=== PATIENT | female | born 1960 | race Caucasian/White ===

== ENCOUNTER 2025-01-12 12:46 | Emergency (ER) | payer MEDICARE, OTHER, SELFPAY ==
--- OUTSIDE RECORDS SUMMARY | 2023-10-10 10:15 | XMS_ITS ---
Author Organization 1 [facility] and [facility], [facility] Address [address] [facility] [address] [place] [address] Care Team Providers Care Home Staging Specialist Name Role Phone Caleb MORRIS III, Dr Cruz Unavailable Cecy Venegas [phone] Encounters Encounter Location Date Provider Diagnosis 1 [facility] [address] [address] 10/10/2023 Cecy Nelson Plan Of Treatment No Information Progress Notes * Kody MEHTA SDOB:[birth year] (64 yo F)Acc No.[id number]:10/10/2023 Progress Notes Patient: Kody MARKS Appointment Provider: LIZZETH Chiu :1960 A ge:63 Y S ex:Female Date:10/10/2023 Address:[address] [place] [address] Subjective: * Chief Complaints: * * Medical History: Objective: * Vitals: Assessment: Plan: * Treatment: * * Electronic signature of Felipa Nelson on 01/12/2025 at 02:13 PM EDT Sign off status: Pending * Appointment Provider: LIZZETH Chiu Date: 10/10/2023 Generated for Printing/Faxing/eTransmitting on: 01/12/2025 02:13 PM EDT
--- OUTSIDE RECORDS SUMMARY | 2023-10-11 05:00 | XMS_ITS ---
Author Organization 1 [facility], [facility] Address [address] [facility] [address] [place] [address] Care Team Providers Care Banquet Waiter/Waitress Name Role Phone Caleb MORRIS III, Dr Cruz Unavailable Unavail able Ya Pires Unavailable [phone] Encounters Encounter Location Date Provider Diagnosis [facility] [place] [address] [facility] [address] [place] [address] 10/11/2023 Ya Pires Plan Of Treatment No Information Progress Notes * Kody MEHTA SDOB:[birth year] (64 yo F)Acc No.[id number]:10/11/2023 Progress Notes Patient: Kody MARKS Appointment Provider: Tasia Pires MD :1960 A ge:63 Y S ex:Female Date:10/11/2023 Address:[address] [place] [address] Subjective: * Chief Complaints: * * Medical History: Objective: * Vitals: Assessment: Plan: * Treatment: * * Electronic signature of Suzi Pires on 01/12/2025 at 02:14 PM EDT Sign off status: Pending * Appointment Provider: Tasia Pires MD Date: 10/11/2023 Generated for Printing/Faxing/eTransmitting on: 01/12/2025 02:14 PM EDT
--- OUTSIDE RECORDS SUMMARY | 2023-10-17 05:45 | XMS_ITS ---
Author Organization 1 [facility], [facility] Address [address] [facility] [address] [place] [address] Care Team Providers Care Ferry Pilot Name Role Phone Caleb MORRIS III, Dr Cruz Unavailable Unavail Cecy Alcantara Unavailable [phone] Allergies Allergen (clinical drug ingredient) Drug/Non Drug Allergy documented on EMR Reaction Allergy Type Onset Date Status Seasonal (uncoded) Unknown Allergy A ctive REASON FOR VISIT low back pain, groin pain, hip pain Medications Medication SIG (Take, Route, Frequency, Duration) Notes Start Date End Date Status Butrans 10 MCG/HR 1 patch to skin Transdermal 7 DAYS; Duration: [address] Ya Pires SUMIT:[id number] Supervising Physician 09/13/2023 Unknown HYDROcodone-Acetamino phen 5-325 MG 1 tablet as needed Orally every 12 hrs; Duration: 30 days SUMIT : [id number] , DO NOT FILL UNTIL 08/31/2023 Unknown traMADol HCl ER 200 MG 1 tablet Orally Once at bedtime; Duration: [address] Ya Pires SUMIT:[id number] Supervising Physician DO NOT FILL UNTIL 09/30/2023 Unknown Lyrica 75 MG 1 capsule Orally Three times a day; Duration: [address] Ya Pires SUMIT:[id number] Supervising Physician DO NOT FILL UNTIL 09/14/2023 Unknown DULoxetine HCl 60 MG 1 capsule Orally Once a day; Duration: 30 day(s) Dr Ya Pires SUMIT:[id number] Supervising Physician Unknown Protonix Unknown Synthroid Unknown Valium 5 MG 1 tablet as needed Orally 1 hour prior to procedure; Duration: 1 day OKAY TO FILL TODAY 10/11/2022 Unknown Medrol 4 MG as directed Orally per _insert; Duration: 6 days 11/20/2022 Unknown Narcan 4 MG/0.1ML use as directed Nasally per package _insert; Duration: 1 dose 06/04/2023 Unknown Meclizine HCl Unknow n DULoxetine HCl Unkno wn Amitriptyline HCl Un known Lipitor Unknown Naltrexone Unknown Linzess Unknown Social History Tobacco Use: Social History Observation Description Date Details (start date - stop date) Never Smoker NA - NA Tobacco Use/Smoking Question Answer Notes Are you a nonsmoker Alcohol Screen Question Answer Notes Did you have a drink containing alcohol in the p ast year? No Points 0 Interpretation Negative Encounters Encounter Location Date Provider Diagnosis 7 [facility] [address] [facility] [address] [place] [address] 10/17/2023 Cecy Nelson Assessments Encounter Date Diagnosis (ICD Code) Assessment Notes Treatment Notes Treatment Clinical Notes Section Notes 10/17/2023 Other The patie nt will start or continue the prescribed opioid medication regimen as outlined below. They have failed non-opioid therapy including acetaminophen, NSAIDs, muscle relaxants, and neuropathic agents. Ongoing prescribing with opioid pain medications is therapeutic because the patient is receiving at least 30% benefit in daily functioning quality of life and/or the ability to perform meaningful work. Risk regarding pain medications and opiates with regards to non-compliance and interactions with other medications/subst ances including benzodiazepines/a lcohol/illicit substances were discussed, the dangers of such action include but are not limited to respiratory suppression and ; and the patient fully understands without additional concerns or questions. The patient has been instructed to call EMS and/or report to the nearest emergency department if a life-threatening emergency presents itself. A prescription was sent to the pharmacy for intramuscular injectable naloxone. We have also provided the patient with information regarding the use of OTC naloxone nasal spray. The patient (and family member) was counseled on the use of nalaxone as a life-saving measure for opioid overdose. The patient has also been instructed on proper disposal of unused pain medications including returning them to a participating pharmacy or case filler / fire department. Medication refills will be provided as needed with appropriate fill dates marked on prescriptions as detailed below. I performed a [place] Prescription Drug Monitoring Program database query on this patient and found it to be consistent with medication history with no apparent evidence of opioid-related aberrant behaviors. Plan Of Treatment No Information Progress Notes * Kody MEHTA SDOB:[birth year] (64 yo F)Acc No.[id number]:10/17/2023 Progress Notes Patient: Kody MARKS Appointment Provider: LIZZETH Chiu :1960 A ge:63 Y S ex:Female Date:10/17/2023 Address:[address] [place] [address] Subjective: * Chief Complaints: * 1 . Low back pain. 2. Groin pain. 3. Hip pain. * HPI: P ain Management: The severity of the pain is c hange after asking patient..? N ew symptom(s): Patient presents today for follow-up visit for management of their pain. Patient describes the pain as throbbing, aching, burning, stabbing, dull, sharp, pins and needles. The patient's pain is mostly in the Pain is improved with Pain is worse with Patient states that the medication is not / helping manage their pain at this time. Patient denies any side effects from the medication. Clinical encounter chaperoned by: PAIN SCORE ON NUMBERIC SCALE IS DOCUMENTED ABOVE. O PIOID RISK TOOL: Risk Assessment & Stratification P atient is on Opioids?Yes, 1 . Substance Abuse - Family History N o, 2 . Substance Abuse - Personal History N o, 3 . Age Between 16-45 N o, 4 . History of Preadolescent Sexual Abuse N o, 5 . Psychological Disease N o, 6 . Risk Factors for Adverse Events Y es, 6 a. 50 MME or Greater N o, 6 b. Benzos / BATTERY ENGINEER Depressants N o, 6 c. Use of Schedule II Opiates Y es, 7 . History of Opioid Related Aberrant Behavior / Adverse Events within 12 Months N o, 8 . History of Inconsistent Urine Drug Test Results within last 90 Days N o,?Risk Group G reen (0-1), R isk Score 1 , P geneva Group L evel A (0-1), P geneva Score 1 , O RT Date Completed 0 10/17/2023. D epression Screening: PHQ-2 (2015 Edition) L ittle interest or pleasure in doing things? N ot at all, F eeling down, depressed, or hopeless? N ot at all, T otal Score 0 . * ROS: N eurologic: Pain P t. reports pain. 6 point ROS: General/Constitutional d enies fever, chills, night sweats, unexplained weight loss,. R espiratory: Patient denies d ifficulty breathing, respiratory depression, reports of excessive snoring, reports of apnea while asleep. G astrointestinal: Patient denies n ausea, vomiting, diarrhea, constipation.? P sychiatric: Patient denies d epression, anxiety, alcohol addiction, illegal drug abuse, prescription drug abuse, recent substance abuse treatment, craving medications, difficulty controlling medication use, family or work problems related to medication use, suicidal thoughts, homicidal thoughts. * Medical History: A rthritis, Acid refux/ulcers, Kidney disease, Headaches/migraines, Depression, Anxiety. * Surgical History: 2 C- sections , 2 Knee replacements , Tubal , Thumb , 2 Sinus . * Hospitalization/Major Diagno stic Procedure: s ee surgical hx . * Family History: F ather: diagnosed with Heart Disease. M other: diagnosed with Heart Disease. Mother- congestive heart failure and 2 hips relocates Father- leaky heart. * Social History: T obacco Use: T obacco Use/Smoking A re you a n onsmoker. S moking A re you a: n ever smoker. D rugs/Alcohol: A lcohol Screen D id you have a drink containing alcohol in the past year? N o, P oints 0 , I nterpretation N egative. * Medications: U nknown Linzess , Unknown DULoxetine HCl , Unknown Amitriptyline HCl , Unknown Lipitor , Unknown Naltrexone , Unknown Meclizine HCl , Unknown Protonix , Unknown Synthroid , Unknown Valium 5 MG Tablet 1 tablet as needed Orally 1 hour prior to procedure , Notes to Pharmacist: OKAY TO FILL TODAY, Unknown Medrol 4 MG Tablet Therapy Pack as directed Orally per _insert , Unknown Narcan 4 MG/0.1ML Liquid use as directed Nasally per package _insert , Unknown HYDROcodone-Acetaminophen 5-325 MG Tablet 1 tablet as needed Orally every 12 hrs , Notes to Pharmacist: SUMIT : [id number] , DO NOT FILL UNTIL 08/31/2023, Unknown traMADol HCl ER 200 MG Tablet Extended Release 24 Hour 1 tablet Orally Once at bedtime , Notes to Pharmacist: Dr Ya Pires SUMIT:[id number] Supervising Physician DO NOT FILL UNTIL 09/30/2023, Unknown Lyrica 75 MG Capsule 1 capsule Orally Three times a day , Notes to Pharmacist: Dr Ya Pires SUMIT:[id number] Supervising Physician DO NOT FILL UNTIL 09/14/2023, Unknown DULoxetine HCl 60 MG Capsule Delayed Release Particles 1 capsule Orally Once a day , Notes to Pharmacist: Dr Ya Pires SUMIT:[id number] Supervising Physician, Unknown Butrans 10 MCG/HR Patch Weekly 1 patch to skin Transdermal 7 DAYS , Notes to Pharmacist: Dr Ya Pires SUMIT:[id number] Supervising Physician, Medication List reviewed and reconciled with the patient * Allergies: S easonal. Objective: * Vitals: * Examination: P HYSICAL EXAM: GENERAL APPEARANCE: N AD, appears stated age. HEENT n ormocephalic, anicteric sclera, mucous membranes grossly intact, EOMI. CV e xtremities appear to be grossly perfused, no obvious chest deformity. RESPIRATORY n o dyspnea noted. ABDOMEN: n ondistended, no obvious ascites noted, no guarding noted. EXTREMITIES: n o edema noted on gross inspection, acyanotic. SKIN: n o gross lesions noted. PSYCH A AO x 3, nonpressured speech, no suicidal ideations, responds to commands, converses appropriately. MUSCULOSKELETAL s trength grossly intact in bilateral UE/LE.. NEUROLOGICAL s ensation and DTRs grossly intact in bilateral UE and LE. CERVICAL P OSITIVE facet loading noted ,decreased range of motion , tenderness to palpation along mid cervical facet joints . THORACIC N TTP, range of motion appears to be within normal limits. LUMBOSACRAL P OSITIVE facet loading noted , decreased range of motion , tenderness to palpation bilaterally along lowest three segments of lumbar facet joints , negative straight leg raise . Assessment: * Assessment: The patient will start or co ntinue the prescribed opioid medication regimen as outlined below. They have failed non-opioid therapy including acetaminophen, NSAIDs, muscle relaxants, and neuropathic agents. Ongoing prescribing with opioid pain medications is therapeutic because the patient is receiving at least 30% benefit in daily functioning quality of life and/or the ability to perform meaningful work. Risk regarding pain medications and opiates with regards to non-compliance and interactions with other medications/substances including benzodiazepines/alcohol/illicit substances were discussed, the dangers of such action include but are not limited to respiratory suppression and ; and the patient fully understands without additional concerns or questions. The patient has been instructed to call EMS and/or report to the nearest emergency department if a life-threatening emergency presents itself. A prescription was sent to the pharmacy for intramuscular injectable naloxone. We have also provided the patient with information regarding the use of OTC naloxone nasal spray. The patient (and family member) was counseled on the use of nalaxone as a life-saving measure for opioid overdose. The patient has also been instructed on proper disposal of unused pain medications including returning them to a participating pharmacy or case filler / fire department. Medication refills will be provided as needed with appropriate fill dates marked on prescriptions as detailed below. I performed a [place] Prescription Drug Monitoring Program database query on this patient and found it to be consistent with medication history with no apparent evidence of opioid-related aberrant behaviors. Plan: * Treatment: * Preventive Medicine: Counseling: p ain Management F ollow-up Plan documented: Jackson manzano. * * Electronic signature of Felipa Nelson on 01/12/2025 at 02:15 PM EDT Sign off status: Pending * Appointment Provider: LIZZETH Chiu Date: 0 10/17/2023 Generated for Printing/Faxing/eTransmitting on: 01/12/2025 02:15 PM EDT History and Physical Notes * HPI (History of Present Illness) Category Sub-Category Detail Notes Category Not es Interim History Pain Management The severity of the pain is change after asking patient. New symptom(s) Patient presents today for follow-up visit for management of their pain. Patient describes the pain as throbbing, aching, burning, stabbing, dull, sharp, pins and needles. The patient's pain is mostly in the Pain is improved with Pain is worse with Patient states that the medication is not / helping manage their pain at this time. Patient denies any side effects from the medication. Clinical encounter chaperoned by: PAIN SCORE ON NUMBERIC SCALE IS DOCUMENTED ABOVE. Pain Documentation Pain Documentation OPIOID RISK TOOL Risk Assessment & Stratification Patient is on Opioids: Yes 1. Substance Abuse - Family History: No 2. Substance Abuse - Personal History: No 3. Age Between 16-45: No 4. History of Preadolescent Sexual Abuse: No 5. Psychological Disease: No 6. Risk Factors for Adverse Events: Yes 6a. 50 MME or Greater: No 6b. Benzos / BATTERY ENGINEER Depressants: No 6c. Use of Schedule II Opiates: Yes 7. History of Opioid Related Aberrant Behavior / Adverse Events within 12 Months: No 8. History of Inconsistent Urine Drug Test Results within last 90 Days: No Risk Group: Green (0-1) Risk Score: 1 Panel Group: Level A (0-1) Panel Score: 1 ORT Date Completed: 10/17/2023 Depression Screening PHQ-2 (2015 Edition) Little interest or pleasure in doing things?: Not at all Feeling down, depressed, or hopeless?: N ot at all Total Score: 0 Examination Category Sub-Category Detail Notes Category Not es PHYSICAL EXAM GENERAL APPEARANCE: NAD, appears stated age HEENT normocephalic, anict david sclera, mucous membranes grossly intact, EOMI CV extremities appear t o be grossly perfused, no obvious chest deformity CERVICAL POSITIVE facet loading noted ,decreased range of motion , tenderness to palpation along mid cervical facet joints MUSCULOSKELETAL strength grossly int act in bilateral UE/LE. RESPIRATORY no dyspnea noted ABDOMEN: nondistended, no obv ious ascites noted, no guarding noted SKIN: no gross lesions not ed EXTREMITIES: no edema noted on gr oss inspection, acyanotic THORACIC NTTP, range of motio n appears to be within normal limits LUMBOSACRAL POSITIVE facet loading noted , decreased range of motion , tenderness to palpation bilaterally along lowest three segments of lumbar facet joints , negative straight leg raise PSYCH AAO x 3, nonpressure d speech, no suicidal ideations, responds to commands, converses appropriately NEUROLOGICAL sensation and DTRs g rossly intact in bilateral UE and LE
--- OUTSIDE RECORDS SUMMARY | 2024-02-21 10:00 | XMS_ITS ---
Author Organization [facility] Address [address] [place], [place] [address] Care Team Providers Care Graphic Editor Name Role Phone MD Cristy Mcneil Primary Care Provider UnavailASHLEY Silvestre Unavailable [phone] CHRISSY BOSCH Unavailable [phone] REASON FOR VISIT LT HAND FROM FALL Encounters Encounter Location Date Provider Diagnosis [facility] [address] [place], [place] [id number] 02/21/2024 CHRISSY BOSCH Plan Of Treatment Next Appt Details Provider Name:ASHLEY MARQUEZ, 11/24/2025 01:30:00 PM, [address], [place], [place], [id number], Progress Notes * RAISSA MEHTA IRADOB:[birth year] (64 yo F)Acc No.[id number]:02/21/2024 Patient: RAISSA MARKS Provider: Cristobal BOSCH :1960 A ge:63 Y S ex:Female Date:02/21/2024 [facility] [address] [place], [place] Pcp:MD Cristy Mcneil Subjective: * Chief Complaints: * 1 . LT HAND FROM FALL. * Medical History: Objective: * Vitals: Assessment: Plan: * Treatment: * * Electronic signature of SANGEETHA BOSCH MD on 01/12/2025 at 02:14 PM EDT Sign off status: Pending * Provider: Cristobal BOSCH Date: 1 Generated for Antoine Serrato/Gurvinder on: 0 01/12/2025 02:14 PM EDT
--- OUTSIDE RECORDS SUMMARY | 2024-09-17 06:30 | XMS_ITS ---
Author Organization [facility] Address [address] [place], [place] [address] Care Team Providers Care Car Salesperson Name Role Phone Bhumi Oliva [phone] REASON FOR VISIT hasnt been seen since 2021 Encounters Encounter Location Date Provider Diagnosis [facility] [address] [place], [place] [id number] 09/17/2024 Bhumi Oliva Plan Of Treatment No Information Progress Notes * Kody MEHTA SDOB:[birth year] (64 yo F)Acc No.[id number]:09/17/2024 Progress Note Patient: Kody MARKS Provider: Yasmine Oliva MD :1960 A ge:64 Y S ex:Female Date:09/17/2024 Address:[facility] [address] [place] [address] Subjective: * Chief Complaints: * 1 . Hasnt been seen since 2021. * Medical History: Objective: * Vitals: Assessment: Plan: * Treatment: * Billing Information: * Visit Code: * Procedure Codes: * Electronic signature of Debbie George MD on 01/12/2025 at 02:13 PM EDT Sign off status: Pending * Provider: Yasmine Oliva MD Date: 0 09/17/2024 Generated for Antoine martinez/Cheyenne/eTransmitting on: 0 01/12/2025 02:13 PM EDT
--- OUTSIDE RECORDS SUMMARY | 2024-09-24 06:15 | XMS_ITS ---
Author Organization [facility] Address [address] [facility] [address] [place] [address] Care Team Providers Care Governor Assembler Name Role Phone Tarun Muniz MD Primary Care Provider UnavailSerenity Diggs Unavailable [phone] REASON FOR VISIT COLON CONSULT Social History Sex Assigned At : Social History Observation Description Sex Assigned At Female Encounters Encounter Location Date Provider Diagnosis [place] [facility] [address] [facility] [facility] [facility] [address] [place] [address] 09/24/2024 Serenity Lundberg Plan Of Treatment No Information Progress Notes * Kody MEHTADOB:1960 (64 yo F)Acc No.[id number]:09/24/2024 Progress Notes Patient: Kody Francois Provider: Jackson Lundberg MD :1960 A ge:64 Y S ex:Female Date:09/24/2024 Address:[facility] [address] [place], [place] Pcp:Tarun Muniz MD Subjective: * Chief Complaints: * C OLON CONSULT Objective: Past Vitals:* 06/25/2023 Ht: 65 in, Wt: 318 lbs, BMI: 52.91Index Billing Information: * Procedure Codes: * Electronic signature of Yajoshua in MD Toño on 01/12/2025 at 02:13 PM EDT Sign off status: Pending * Provider: Jackson Lundberg MD Date: 0 09/24/2024 Generated for Antoine martinez/Cheyenne/Gurvinder on: 0 01/12/2025 02:13 PM EDT
--- OUTSIDE RECORDS SUMMARY | 2024-10-15 04:45 | XMS_ITS ---
Author Organization [facility] Address [address] [facility] [address] [place] [address] Care Team Providers Care Acid Filler Name Role Phone Tarun Muniz MD Primary Care Provider UnavailSerenity Diggs Unavailable [phone] REASON FOR VISIT colon consult Social History Sex Assigned At : Social History Observation Description Sex Assigned At Female Encounters Encounter Location Date Provider Diagnosis [place] [facility] [address] [facility] [address] [place] [address] 10/15/2024 Serenity Lundberg Plan Of Treatment No Information Progress Notes * Kody MEHTADOB:1960 (64 yo F)Acc No.[id number]:10/15/2024 Progress Notes Patient: Kody Francois Provider: Jackson Lundbegr MD :1960 A ge:64 Y S ex:Female Date:10/15/2024 Address:[facility] [address] [place], [place] Pcp:Tarun Muniz MD Subjective: * Chief Complaints: * C olon consult Objective: Past Vitals:* 06/25/2023 Ht: 65 in, Wt: 318 lbs, BMI: 52.91Index Billing Information: * Procedure Codes: * Electronic signature of Yajoshua in MD Toño on 01/12/2025 at 02:14 PM EDT Sign off status: Pending * Provider: Jackson Lundberg MD Date: 0 10/15/2024 Generated for Antoine martinez/Cheyenne/Gurvinder on: 0 01/12/2025 02:14 PM EDT
--- OUTSIDE RECORDS SUMMARY | 2024-11-11 10:00 | XMS_ITS ---
Author Organization [facility] Address [address] [place] [id number] Care Team Providers Care International Affairs Vice President Name Role Phone MD Tarun ing Primary Care Provider ASHLEY Dominguez [phone] REASON FOR VISIT DANIEL Knee Medications Medication SIG (Take, Route, Frequency, Duration) Notes Start Date End Date Status DULoxetine HCl 60 MG Oral; Duration: 30 Active Levothyroxine Sodium 100 MCG Oral; Duration: 30 Active Linzess 290 MCG Oral; Duration: 30 Days Active Stool Softener Not-T aking Meclizine HCl 25 MG Oral; Duration: 30 Days Active ZyrTEC Active Atorvastatin Calcium 20 MG Oral; Duration: 30 Active Synthroid 100 MCG 1 tablet in the morning on an empty stomach Orally Once a day Active Amitriptyline HCl 25 MG 1 tablet at bedt dagmar Orally Once a day Active Protonix 40 MG 1 tablet Orally Once a day Active Lyrica 75 MG 1 capsule in the evening 1 to 3 hours before bedtime Orally Active Curcumin 95 Active Flonase Active Lipitor Active Tylenol Active Cymbalta 60 MG 1 capsule Orally Onc e a day Not-Taking Pantoprazole Sodium 40 MG Oral; Duration: 30 Not-Taking Naltrexone HCl Not-T aking Famotidine 40 MG Oral; Duration: 30 Not-Taking Vitamin C 500 MG as directed Orally Not-Taking Vitamin D Not-Taking Encounters Encounter Location Date Provider Diagnosis [facility] [address] [place] [id number] 11/11/2024 ASHLEY ELLIS Plan Of Treatment Next Appt Details Provider Name:ASHLEY ELLIS, 11/24/2025 01:30:00 PM, [address], [place], [place], [id number], Progress Notes * RAISSA MEHTADOB:[birth year] (64 yo F)Acc No.[id number]:11/11/2024 Progress Notes Patient: RAISSA MARKS Provider: Cristobal Ellis MD :1960 A ge:64 Y S ex:Female Date:11/11/2024 Address:[facility] [address], [id number] Pcp:MD Cristy Mcneil Subjective: * Chief Complaints: * 1 . DANIEL Knee. * Medical History: * Medications: T aking Lyrica 75 MG Capsule 1 capsule in the evening 1 to 3 hours before bedtime Orally , Taking Lipitor , Taking Tylenol , Taking Flonase , Taking Curcumin 95 , Taking Protonix 40 MG Tablet Delayed Release 1 tablet Orally Once a day , Taking Synthroid 100 MCG Tablet 1 tablet in the morning on an empty stomach Orally Once a day , Taking Amitriptyline HCl 25 MG Tablet 1 tablet at bedtime Orally Once a day , Taking ZyrTEC , Taking Atorvastatin Calcium 20 MG Tablet Oral , Taking DULoxetine HCl 60 MG Capsule Delayed Release Particles Oral , Taking Levothyroxine Sodium 100 MCG Tablet Oral , Taking Meclizine HCl 25 MG Tablet Oral , Taking Linzess 290 MCG Capsule Oral , Not-Taking Cymbalta 60 MG Capsule Delayed Release Particles 1 capsule Orally Once a day , Not-Taking Stool Softener , Not-Taking Vitamin D , Not-Taking Vitamin C 500 MG Capsule as directed Orally , Not-Taking Naltrexone HCl , Not-Taking Famotidine 40 MG Tablet Oral , Not-Taking Pantoprazole Sodium 40 MG Tablet Delayed Release Oral Objective: * Vitals: Assessment: Plan: * Treatment: * * Electronic signature of STACY ELLIS MD on 01/12/2025 at 02:13 PM EDT Sign off status: Pending * Provider: Cristobal Ellis MD Date: 11/11/2024 Generated for Antoine martinez/Cheyenne/Gurvinder on: 01/12/2025 02:13 PM EDT
[2025-01-12 12:36] VITALS: BP 130/72; PULSE 78; RESP 17; TEMP 36.7; BMI 52.4
--- NOTE | 2025-01-12 12:37 | ED_ITS ---
HPI - Fall General: Chief Complaint: Fall Stated Complaint: fall - right shoulder pain History of Present Illness: 64-year-old female who presents to the e mergency room with complaints of right shoulder pain. She was traveling through the area had not stopped locally to eat she stumbled in the parking lot and tripped. Ground-level mechanical fall she landed on her left shoulder she has pain in the proximal humerus. She did not strike her head or lose consciousness she denies any other injuries she is not on any anticoagulants. Associated symptoms-after fall: Denies abdominal pain, chest pain or neck pain Related Data Previous Rx's ?Medication ?Instructions ?Recorded hydrocodone 5 mg-acetaminophen 325 1 tab PO Q6H PRN pa in #20 tabs 01/12/25 mg tablet Review of Systems Const: Denies: fever(s) or chills Card: Denies: chest pain Resp: Denies: dyspnea GI: Denies: abdominal pain : Denies: dysuria, urinary frequency or urinary urgency Musc: Denies: neck pain or back pain Skin/Breast: Denies: rash Physical Exam Const: GENERAL APPEARANCE: cooperative ORIENTATION/CONSCIOUSNESS: Yes awake, Yes oriented to person, Yes oriented to place and Yes oriented to time HENMT: COMMON NORMALS: normocephalic, atraumatic and hearing grossly normal bilaterally HEAD & SCALP: normocephalic and atraumatic Resp: COMMON NORMALS: normal respiratory effort, No retractions, No use of accessory muscles and clear to auscultation bilaterally AUSCULTATION: clear to auscultation bilaterally Cardio: COMMON NORMALS: regular rate, regular rhythm and No murmurs present (Cardio) RATE: regular rate RHYTHM: regular rhythm GI: COMMON NORMALS: Soft to palpation and No hepatosplenomegaly present AUSCULTATION: Yes normoactive bowel sounds PALPATION: Yes Soft to palpation, No Tenderness to palpation present (GI), No Guarding due to palpation present (GI) and Yes No hepatosplenomegaly present Extremity: OTHER: Swelling and extreme discomfort with palpation the proximal humerus on the right no obvious deformity. Clavicle intact on palpation Neuro: SENSORIUM/ORIENTATION: Yes oriented to person, Yes oriented to place and Yes oriented to time Skin: COMMON NORMALS: no rashes or lesions noted GENERAL SKIN EXAM: no alex hes or lesions noted Course Vital Signs: Vital signs: Vital Signs Temperature 98.1 F 01/12/25 12:36 Pulse Rate 78 01/12/25 12:36 Respiratory Rate 17 01/12/25 13:43 Blood Pressure 130/72 01/12/25 12:36 Pulse Oximetry 92 01/12/25 13:43 MDM - Fall Medical Decision Making X-ray shows comminuted proximal humerus fracture does not extend to the articulating surface. Patient lives in [place] she prefers to follow-up with her orthopedist in her home area. Will discharge patient with hydrocodone for pain and a sling. No use of the right arm until cleared by orthopedics. Medical Records I reviewed the patient's medical records. Lab Data I reviewed the patient's lab results. Radiology Impressions Humerus X-Ray 01/12/25 12:38 IMPRESSION: 1. Fractures of the surgical neck and head of the humerus. The remainder of the humerus is intact. Shoulder X-Ray 01/12/25 12:38 IMPRESSION: 1. Fracture of the surgical neck and head of the humerus as detailed above. All radiology interpretation(s) finalized by discharge Discharge Plan Discharge Patient Disposition: Home Clinical Impression: Fracture of proximal end of right humerus Condition: Stable Prescriptions: New hydrocodone-acetaminophen 5-325 mg tablet 1 tab PO Q6H PRN (Reason: pain) Qty: 20 0RF Discharge Orders: Discharge ED (Routine); Ordered 01/12/25 Ordered By: Hugo Escobar Discharge Diet: Usual diet Discharge Activity: Limit activity as instructed Patient Instructions: Proximal Humerus Fracture (ED), Opioid Safety, Pain Management, Patient Portal & Andra Instructions Activity Restrictions/Additional Instructions: Thank you for choosing [facility] for your healthcare needs today. It is very important that you follow up as instructed or that you return to the Emergency Department should you have concerns or if your condition changes or worsens in any way. Emergency department visits are focused on emergent conditions, in some cases you may require further evaluation on an outpatient basis. You were seen in the emergency room after a fall. There is a fracture of the humerus (upper arm bone) at the shoulder joint. Recommend pain control and keeping your arm in a sling following up with orthopedics. (Please note that included in your discharge packet is information concerning opioid safety and pain management. This information is given to all patients were discharged from the ER regardless of their discharge diagnosis or the medicines they usually take or are prescribed.) Print Language: Korean Coding Level of Care Code ED Swim Instructor for Sreeg Keith
--- NOTE | 2025-01-12 12:38 | XR_ITS ---
WS: [id number] Exam: [place] [id number] Date/Time of Exam: 01/12/2025 12:38 PM Reason For Exam: Trauma DLP: Again noted is fracture of the surgical neck and head of the humerus as previously described. The remainder of the humerus appears to be intact. No dislocation is seen. Soft tissues are unremarkable. XR/[place] [id number] IMPRESSION: 1. Fractures of the surgical neck and head of the humerus. The remainder of the humerus is intact.
--- NOTE | 2025-01-12 12:38 | XR_ITS ---
WS: [id number] Exam: XR shoulder RT min 2V* [id number] Date/Time of Exam: 01/12/2025 12:38 PM Reason For Exam: Trauma DLP: There is an impacted fracture of the surgical neck and head of the humerus. There is lateral avulsion fracture of the greater tuberosity of the humerus. No dislocation noted. Mild DJD and spurring at the AC joint. XR/XR shoulder RT min 2V* [id number] IMPRESSION: 1. Fracture of the surgical neck and head of the humerus as detailed above.
--- OUTSIDE RECORDS SUMMARY | 2025-01-12 13:14 | XMS_ITS | Patient Health Record ---
Author Organization [facility] Address [address] [address] Care Team Providers Care Director [employer]it System Name Role Phone Tarun Muniz MD Primary Care Provider Serenity Rios Unavailable [phone] Allergies Allergen (clinical drug ingredient) Drug/Non Drug Allergy documented on EMR Reaction Allergy Type Onset Date Status Psyllium Unknown Drug Allergy Active Reason For Referral No Information Medications Medication SIG (Take, Route, Fr equency, Duration) Notes Start Date End Date Status Pepcid Active Stool Softener Activ e Protonix Active Zinc Active Lipitor Active Vitamin D Active Fish Oil Active Cymbalta Active Vitamin C Active Niacin Active Social History Sex Assigned At : Social History Observation Description Sex Assigned At Female Social History Drugs: Social Info Question Answer Notes Drugs: Current or past use of IV or Recreational Drugs: Never Alcohol: Social Info Question Answer Notes Alcohol Current or past use of alcohol: Never Tobacco Use: Social Info Question Answer Notes . Are you a: never smoker Section Notes: No ETOH or tobacco. Problems Problem Type SNOMED Code ICD Code Onset Dates Problem Status W/U Status Risk Notes Problem History of polyp of colon (situation) (746784287) Personal history of colonic polyps (Z86.010) Active confirmed 06/2021- TA X 2 , repeat in 2024 for surveillance Problem Irritable bowel syndrome characterized by constipation (343535067) Irritable bowel syndrome with constipation (K58.1) Active confirmed Problem Chronic idiopathic constipation (15150953) Chronic idiopathic constipation (K59.04) Active confirmed Problem Obesity (946820800) Obesity (BMI 30-39.9) (E66.9) Active confirmed Problem History of adenomatous polyp of colon (743416294) History of adenomatous polyp of colon (Z86.010) Active confirmed Problem Oral candidiasis (39738915) Oral candidiasis (B37.0) Active confirmed no current issues Problem Gastroesophageal reflux disease (111997177) GERD (K21.9) Active confirmed again patie nt aware that she is advised that she needs to get the egd done due to the ongoing reflux symptoms. she states that she did get assistance for the colonoscopy, will place order for endoscopy again and she is advised to call [facility] financial dept and discuss re applying for FA Plan Of Treatment No Information Insurance Providers Payer Name Payer Address Payer Phone Subscriber Number Group Number Insured Name Patient Relationship to Insured Coverage Start Date Coverage End Date UHC Medicare PPO C SNP [id number] [address] [address] [place] [address] [phone] [id number] Kody Wilcox Self - patient is the insured Medicare [place] [id number] [address] [place] [address] [id number] Kody Wilcox Self - patient is the insured Medical (General) History Medical History History ICD Code Patient selected: Colon Polyps,Gerd,Anxiety/Depression,Arthritis/Osteoarthritis,Chronic Kidney Disease (CKD),Hyperlipidemia/High Cholesterol (HLD),Hypothyroidism,Nerve/Muscle Disease Vaccine: Hepatitis A,Hepatitis B Surgical History Surgery Date(Month/Year) knee replacement x2 sinus surgery
--- OUTSIDE RECORDS SUMMARY | 2025-01-12 13:14 | XMS_ITS | Clinical Summary ---
Author Organization [facility] Address [address] [place] [id number] Phone Care Team Providers Care Manager Training And Development Name Role Phone Unavailable Primary Care Provider Unavailabl e Allergies Active Allergy Reactions Criticality Noted Date Comments Latex 07/22/2019 Nsaids Other (see comments) 06/11/2020 For Kidney resaons For Kidney resaons Psyllium Hives High 02/03/2021 Medications fexofenadine (LOGAN) 180 MG tablet Take 180 mg by mouth 1 (one) time each day Active dexlansoprazole (DEXILANT) [address] capsule Take 60 mg by mouth 1 (one) time each day Active Multiple Vitamins-Minera ls (IMMUNE SUPPORT PO) Take 300 mg by mouth 3 times a day Active levothyroxine sodium (TIROSINT) 100 MCG capsule Take 100 mcg by mouth 1 (one) time each day Active buPROPion XL (WELLBUTRIN XL) 300 MG 24 hr tablet Take 300 mg by mouth 1 (one) time each day Active Magnesium 400 MG capsule Take 400 mg by mouth 1 (one) time each day Active Cetirizine HCl 10 MG capsule Take 10 mg by mouth 1 (one) time each day Active niacin 500 MG CR capsule Take 500 mg by mouth every night Active docusate sodium (COLACE) 100 MG capsule Take 100 mg by mouth 1 (one) time each day Active omega-3 (FISH OIL) 1000 MG capsule Take 1,000 mg by mouth 1 (one) time each day Active polyethylene glycol (GLYCOLAX) packet Take 17 g by mouth 1 (one) time each day Active FLUoxetine (PROzac) 10 MG tablet Take 10 mg by mouth 1 (one) time each day Active pantoprazole (PROTONIX) 40 MG EC tablet Take 40 mg by mouth 1 (one) time each day before breakfast Active traMADol (ULTRAM) 50 MG tablet Take 50 mg by mouth every 6 (six) hours if needed for moderate pain Active Cholecalciferol (Vitamin D) 125 MCG (5000 UT) capsule Take by mouth Active ascorbic acid (VITAMIN C) 500 MG tablet Take 500 mg by mouth 1 (one) time each day Active ipratropium (ATROVENT) 0.06 % nasal spray Administer 2 sprays into each nostril 4 (four) times a day Active Eszopiclone 3 MG tablet Take 3 mg by mouth every night Take immediately before bedtime Active DULoxetine (CYMBALTA) [address] capsule Take 60 mg by mouth 1 (one) time each day Do not crush or chew. Active meclizine (ANTIVERT) 25 MG tablet Take 25 mg by mouth 2 (two) times a day Active famotidine (PEPCID) 40 MG tablet Take 40 mg by mouth 1 (one) time each day Active acetaminophen (TYLENOL) 325 MG tablet Take 650 mg by mouth every 6 (six) hours if needed for mild pain 2 tab bid Active atorvastatin (LIPITOR) 20 MG tablet Take 1 tablet by mouth 1 (one) time each day 2 Active azithromycin (ZITHROMAX) 250 MG tablet Take 250 mg by mouth Active benzonatate (TESSALON) 100 MG capsule Take by mouth 0 Active folic acid (FOLVITE) 1 MG tablet Active naltrexone (DEPADE) 50 MG tablet Take 4.5 mg by mouth daily Active nystatin (MYCOSTATIN) 976590 UNIT/ML suspension Active ondansetron (ZOFRAN) 4 MG tablet Take 4 mg by mouth 0 Active predniSONE (DELTASONE) 5 MG tablet Take 5 mg by mouth Active Sulfacetamide Sodium-Sulfur 8-4 % suspension 1 Active valACYclovir (VALTREX) 1 g tablet Active zinc gluconate 50 MG tablet Take by mouth Act karma levothyroxine (SYNTHROID) 100 MCG tablet 2 Active methylPREDNISol one (MEDROL DOSPAK) 4 MG tablet TAKE DIRECTED 2 Active sulfamethoxazol e-trimethoprim (BACTRIM DS) 800-160 MG per tablet Take 1 tablet by mouth 2 (two) times a day 2 Active linaCLOtide (LINZESS PO) Take by mouth Act karma amitriptyline (ELAVIL) 25 MG tablet Take 1 tablet by mouth every night Active amitriptyline (ELAVIL) 50 MG tablet Take 50 mg by mouth 3 Active fluconazole (DIFLUCAN) 150 MG tablet Take one tab now. Repeat in 7 days if symptoms persist.. 3 Active hydroxychloroqu ine (PLAQUENIL) 200 MG tablet Take 1 tablet by mouth 1 (one) time each day in the morning Active Meloxicam powder Take by mouth Active pregabalin (LYRICA) 50 MG capsule Take 50 mg by mouth Active scopolamine (TRANSDERM-SCOP ) 1 MG/3DAYS patch [address] 1 patch on the skin every 72 hours 3 Active Semaglutide-Dameon ght Management (Wegovy) 0.25 MG/0.5ML solution auto-injector Inject 0.25 mg under the skin every 7 (seven) days 3 Active Semaglutide-Dameon ght Management (Wegovy) 0.5 MG/0.5ML solution auto-injector Inject 0.5 mg under the skin every 7 (seven) days 3 Active Active Problems Problem Noted Date Diagnosed Date Body mass index (BMI) 50.0-59.9, adult 2 H/O: meningitis 03/23/2020 Overview (01/31/2022): Last Assessment & Plan: Bacterial that left a permanent injury of blindness 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 Overview (01/31/2022): Last Assessment & Plan: Having permanent residual side effects that should restrict work 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 (01/31/2022): Secondary to bacterial meningitis Last Assessment & Plan: Secondary to meningitis seems stable Anemia 07/24/2019 Overview (01/31/2022): Last Assessment & Plan: To recheck to see if further anemic Acute kidney failure 07/23/2019 Essential hypertension 07/08/2019 Chronic kidney disease stage 3 06/02/2019 Overview (07/18/2023): Last Assessment & Plan: Seeing renal to recheck labs today Last Assessment & Plan: To monitor renal functions H/O: viral illness 03/19/2017 Overview (01/31/2022): Last Assessment & Plan: Refill done Gastroesophageal reflux disease 11/29/2016 Overview (07/18/2023): Last Assessment & Plan: On PPI to refill today and monitor renal panel Last Assessment & Plan: Stable to refill pantoprazole Hyperlipidemia 11/29/2016 Overview (07/18/2023): Last Assessment & Plan: For fasting labs On atorvastatin Last Assessment & Plan: On atorvastatin, to refill meds today Allergic rhinitis 11/04/2015 Overview (01/31/2022): Seeing an customer relations representative. Last Assessment & Plan: To see customer relations representative Fibromyalgia 11/04/2015 Overview (01/31/2022): Last Assessment & Plan: On LDN with Neuro and seem better Hypothyroidism 11/04/2015 Overview (07/18/2023): Last Assessment & Plan: For thyroid level Seeing Endo will send copy of labs to them Last Assessment & Plan: Seeing Endo. For thyroid level to check labs Sleep apnea 11/04/2015 Family History Medical History Relation Comments Heart disease Father Hypertension Father Heart disease Mother Relation Status Comments Father Mother Social History Tobacco Use Types Packs/Day Years Used Date Smoking Tobacco: Never Assessed Comments Unknown Sex and Gender Information Value Date Recorded Sex Assigned at Not on file Legal Sex Female 10:07 AM MDT Gender Identity Not on file Sexual Orientation Not on file Last Filed Vital Signs Vital Sign Reading Time Taken Comments Blood Pressure 118/73 02/02/2022 11:02 AM EDT Pulse 72 02/02/2022 11:02 AM EDT Temperature 36.2 C (97.1 F) 02/02/2022 11:02 AM EDT Respiratory Rate - - Oxygen Saturation 95% 02/02/2022 11:02 AM EDT Inhaled Oxygen Concentration - - Weight 139 kg (307 lb) 02/02/2022 11:02 AM EDT Height 165.1 cm (5' 5 ) 02/02/2022 11:02 AM EDT Body Mass Index 51.09 02/02/2022 11:02 AM EDT Plan of Treatment Health Maintenance Due Date Last Done Comments Pneumococcal PPSV23 Highest Risk Adult (1 of 3 - PCV13) 08/21/1979 COVID-19 Vaccine (3 - 2024-2 6 season) 2024 03/23/2021, 01/06/2021 Influenza Vaccine (#1) 2024 2, 02/08/2019, 02/08/2019, Additional history exists
--- OUTSIDE RECORDS SUMMARY | 2025-01-12 13:14 | XMS_ITS ---
Author Organization [facility] Address [address] [place] [address] Care Team Providers Care Employee Benefits Insurance Agent Name Role Phone VENTURA SANTACRUZ Primary Care Physician Unavailab le VENTURA SANTACRUZ Attending Clinician Unavailable VENTURA SANTACRUZ Attending Clinician Unavailable HSINGVENTURA Attending Clinician Unavailable Payers Payer Name Policy Type Policy Number Effective Date Expira tion Date [facility] MEDICARE ADVANTAGE [facility] Medicare [id number] 2024 00:00:00 [employer] MEDICARE ADVANTAGE O Medicare [id number] 2022 00:00:00 Allergies, Adverse Reactions, Alerts Allergy Name Allergy Type Status Severity Reaction(s) Onset Date Inactive Date Treating Clinician Comments PSYLLIUM DRUG INGREDI Active High Hives 2021-01 00:00:0 0 NSAIDS (NON-STEROI DALLIN ANTI-INFLAM MATORY DRUG) Drug Class Active Other 2020-05 00:00:0 0 LATEX DRUG INGREDI Active 2019-06 00:00:0 0 ADHESIVE Drug Class Active 2019-06 00:00:0 0 Vital Signs Vital Name Observation Time Observation Value Commen ts Height cm 2024-12-26 07:50:00 167.6 cm Weight lb 2024-12-26 07:50:00 332.8 lb Height cm 2024-07-16 09:45:00 167.6 cm Weight lb 2024-07-16 09:45:00 345.6 lb Assessments Condition Name Status Diagnosis Date Treating Cl inician Med Refill Active Encounters Start Date/Time End Date/Time Encounter Type Admission Type Attending Clinicians Care Facility Care Department Encounter ID 2025-01-02 10:14:43 2025-01-02 10:29:49 Outpatient [facility] [id number] 2024-12-26 07:42:44 2024-12-26 08:39:01 Outpatient VENTURA CANTU [facility] [id number] 2024-12-12 17:18:12 2024-12-12 17:18:12 Outpatient VENTURA SANTACRUZ [facility] [id number] 2024-11-08 20:04:55 2024-11-08 20:04:55 Outpatient VENTURA SANTACRUZ [facility] [id number] 2024-11-07 19:44:24 2024-11-07 19:44:24 Outpatient VENTURA SANTACRUZ [facility] [id number] 2024-07-16 09:25:11 2024-07-16 10:47:39 Outpatient C VENTURA SANTACRUZ [facility] [id number] 2023-12-05 18:59:34 2023-12-05 18:59:34 Outpatient VENTURA SANTACRUZ [facility] [id number]
--- OUTSIDE RECORDS SUMMARY | 2025-01-12 13:14 | XMS_ITS | Encounter Summary ---
Author Organization [facility] [employer] [facility] Address [address] [place] [address] Care Team Providers Care Skimmer Reverberatory Name Role Phone Tarun Muniz MD Primary Care Provider Vijay Mullen MD Unavailable Thien Jackson MD Unavailable Caleb MARR MD, James William Unavailable + Kelsy Ferrell MD Unavailable Devang Yap MD Unavailable Joaquín Mcmullen MD Unavailable [phone] Encounter Details Date Type Department Care Team (Late st Contact Info) Description 07/17/2019 Lab Requisition [facility] [place] [address] [place] [id number] Vijay Mullen MD [address] [place] [address] Chronic kidney disease, stage 3 (moderate) (CMS/HCC) Social History Tobacco Use Types Packs/Day Years Used Date Smoking Tobacco: Never Smokeless Tobacco: Never Alcohol Use Standard Drinks/Week Comments Not Currently 0 (1 standard drink = 0.6 oz pur e alcohol) socially AUDIT-C Answer Date Recorded Frequency of Alcohol Consumption Not on file 05/19/2019 Average Number of Drinks Not on file 020 Q3: How often do you have si x or more drinks on one occasion? Never 05/19/2019 Comments No Sex and Gender Information Value Date Recorded Sex Assigned at Female 05/06/2020 1:58 PM EST Legal Sex Female 4:20 PM EDT Gender Identity Female 05/06/2020 1:57 PM EST Sexual Orientation Straight 05/06/2020 1: 57 PM EST documented as of this encounter Plan of Treatment Not on file documented as of this encounter Procedures Procedure Name Priority Date/Time Associated Diagnosis Comments BASIC METABOLIC PANEL Routine 07/17/2019 10:00 AM EDT Chronic kidney disease, stage 3 (moderate) (CMS/[facility]) documented in this encounter Results * (ABNORMAL) Basic metabolic panel (07/17/2019 10:00 AM EDT) SODIUM 140 135 - 148 mmol/L LAB CHEMISTRY METHOD 07/17/2019 6:[address] [facility] POTASSIUM 4.8 3.5 - 5.2 mmol/L LAB CHEMISTRY METHOD 07/17/2019 6:[address] [facility] CHLORIDE 109 100 - 110 mmol/L LAB CHEMISTRY METHOD 07/17/2019 6:[address] [facility] CO2 27 21 - 32 mmol/L LAB CHEMISTRY METHOD 07/17/2019 6:[address] [facility] BUN 10.0 3.0 - 23.0 mg/dL LAB CHEMISTRY METHOD 07/17/2019 6:[address] [facility] CREATININE 1.21(H) 0.60 - 1.00 mg/dL LAB CHEMISTRY METHOD 07/17/2019 6:[address] [facility] GLUCOSE 113(H) 65 - 99 mg/dL LAB CHEMISTRY METHOD 07/17/2019 6:[address] [facility] CALCIUM 9.2 8.4 - 10.6 mg/dL LAB CHEMISTRY METHOD 07/17/2019 6:[address] [facility] EGFR 49.4(L) >60.0 mL/min/1. 73m*2 LAB CHEMISTRY METHOD 07/17/2019 6:[address] [facility] BUN / CREAT RATIO 8.26(L) 10.00 - 24.00 Ratio LAB CHEMISTRY METHOD 07/17/2019 6:17 PM EDT [facility] ANION GAP 4.0(L) 4.3 - 12.3 mmol/L LAB CHEMISTRY METHOD 07/17/2019 6:17 PM EDT [facility] Blood (Blood, Venous) 07/17/2019 10:00 AM EDT 07/17/2019 12:19 PM EDT Vijay Mullen MD LAB BLOOD ORDERABLES Final Result [facility] [address] [place] [address], documented in this encounter Visit Diagnoses Diagnosis Chronic kidney disease, stage 3 (moderate) documented in this encounter Care Teams Skimmer Reverberatory Relationship Specialty Start Date End Date Tarun Muniz MD [address] [facility] [address] [place] [address] PCP - General Family Medicine 03/08/18 Vijay Mullen MD [address] [facility], [place], [facility] [place] [address] Nephrology 07/18/19 [place] [address] [address] [facility] [address] [place] [address] Infectious Diseases 11/14/19 Anthony Ellis III, MD [address] [place] [address] Orthopaedic Surgery 11/14/19 Kelsy Ferrell MD [address] [facility] [address] [place] [address] Endocrinology 11/17/19 01/24/22 Devang Yap MD [address] [facility] [address] [place], [place] [id number] Neurology 04/01/21 Joaquín Mcmullen MD [address] [facility] [address] [place] [address] Pain Medicine 08/16/23 Rosa Motta Endocrinology 09/15/22 documented as of this encounter
--- OUTSIDE RECORDS SUMMARY | 2025-01-12 13:14 | XMS_ITS | Patient Health Record ---
Author Organization 1 [facility] Address [address] [facility] [address] [place] [address] Care Team Providers Care Fast Brim Pouncer Name Role Phone Caleb MORIRS III, Dr Cruz Unavailable Unavail Colby Doan Unavailable [phone] Allergies Allergen (clinical drug ingredient) Drug/Non Drug Allergy documented on EMR Reaction Allergy Type Onset Date Status Seasonal (uncoded) Unknown Allergy A ctive Reason For Referral No Information Medications Medication SIG (Take, Route, Frequency, Duration) Notes Start Date End Date Status traMADol HCl ER 200 MG 1 tablet Orally Once at bedtime; Duration: 30 days SUMIT: [id number], DO NOT FILL UNTIL 11/26/2023 Active HYDROcodone-Acetamino phen 5-325 MG 1 tablet as needed Orally every 12 hrs; Duration: 30 days SUIMT: [id number], OKAY TO FILL TODAY Active DULoxetine HCl 60 MG 1 capsule Orally Once a day; Duration: 30 day(s) Dr Ya Pires SUMIT:[id number] Supervising Physician Active Lyrica 75 MG 1 capsule Orally Three times a day; Duration: 30 days SUMIT: [id number], DO NOT FILL UNTIL 11/22/2023 Active Naltrexone Unknown Meclizine HCl Unknow n Butrans 10 MCG/HR 1 patch to skin Transdermal 7 DAYS; Duration: 28 DAYS SUMIT: [id number], DO NOT FILL UNTIL 11/17/2023 09/13/2023 Active Protonix Unknown Synthroid Unknown Linzess Unknown DULoxetine HCl Unkno wn Amitriptyline HCl Un known Lipitor Unknown Narcan 4 MG/0.1ML use as directed Nasally per package _insert; Duration: 1 dose 06/04/2023 Unknown Social History Tobacco Use: Social History Observation Description Date Details (start date - stop date) Never Smoker NA - NA Tobacco Use/Smoking Question Answer Notes Are you a nonsmoker Alcohol Screen Question Answer Notes Did you have a drink containing alcohol in the p ast year? No Points 0 Interpretation Negative Problems Problem Type SNOMED Code ICD Code Onset Dates Problem Status W/U Status Risk Notes Problem Information temporarily unavailable Pain in right hip (M25.551) Active confirmed Problem Information temporarily unavailable Sacroiliitis, not elsewhere classified (M46.1) Active confirmed UNCONTROLLED - see new medication(s) added, medication changes, and/or non-pharmacolo gical treatment option(s) recommended below. Problem Information temporarily unavailable Other spondylosis with myelopathy, site unspecified (M47.10) Active confirmed Problem Information temporarily unavailable Radiculopathy, lumbar region (M54.16) Active confirmed Problem Information temporarily unavailable shelter (current) use of opiate analgesic (Z79.891) Active confirmed Problem Information temporarily unavailable Radiculopathy, lumbosacral region (M54.17) Active confirmed Problem Information temporarily unavailable Sacroiliitis, not elsewhere classified (M46.1) Active confirmed Problem Information temporarily unavailable Spondylosis without myelopathy or radiculopathy, lumbosacral region (M47.817) Active confirmed Problem Information temporarily unavailable Chronic pain syndrome (G89.4) Active confirmed Problem Information temporarily unavailable Other intervertebral disc displacement, lumbar region (M51.26) Active confirmed Problem Information temporarily unavailable Low back pain, unspecified (M54.50) Active confirmed Problem Information temporarily unavailable Low back pain, unspecified (M54.50) Active confirmed Problem Information temporarily unavailable Chronic pain syndrome (G89.4) Active confirmed Problem Information temporarily unavailable Radiculopathy, lumbar region (M54.16) Active confirmed Problem Information temporarily unavailable Sacroiliitis, not elsewhere classified (M46.1) Active confirmed Encounters Encounter Location Date Provider Diagnosis 1 [facility] [address] [place] [address] 03/05/2024 Colby Reyes 1 [facility] [address] [place] [address] 06/10/2024 Colby Reyes 1 [facility] [address] [place] [address] 06/26/2024 Colby Reyes 1 [facility], [place] [address] [address] [facility] [address] [place] [address] 07/02/2024 Colby Reyes Plan Of Treatment Pending Test Test Name Order Date Urine Drug Screen POC 11/22/2022 Urine Drug Screen POC 07/02/2023 Insurance Providers Payer Name Payer Address Payer Phone Subscriber Number Group Number Insured Name Patient Relationship to Insured Coverage Start Date Coverage End Date Human Medicare PPO Non [place] [employer] [address] [address] [place] [address] [phone] [id number] Kody Wilcox Self - patient is the insured 3 Medical (General) History Medical History History ICD Code Arthritis Acid refux/ulcers Kidney disease Headaches/migraines Depression Anxiety Surgical History Surgery Date(Month/Year) 2 C- sections 2 Knee replacements Tubal Thumb 2 Sinus Hospitalization History Reason Date(Month/Year) see surgical hx
--- OUTSIDE RECORDS SUMMARY | 2025-01-12 13:14 | XMS_ITS | Patient Health Record ---
Author Organization [facility] Address [address] [place], [place] [address] Care Team Providers Care Labor Service Representative Name Role Phone Bhumi Oliva Unavailable [phone] Allergies Allergen (clinical drug ingredient) Drug/Non Drug Allergy documented on EMR Reaction Allergy Type Onset Date Status psyllium METAMUSIL (uncoded) hives Allergy 01/31/2021 Active PRESERVATIVES (uncoded) Unknown Allergy 2020 Active Non-steroidal anti-inflammatory agent (FN) NSAIDs Unknown Drug Allergy 02/01/2022 Active Results Component Value Reference Range Notes [facility] Mammo 3D HD Screening Bi l Reviewed date:09/09/2024 10:41:12 AM Interpretation:Normal Performing Lab: Notes/Report: Patient Name: KODY MEHTA Patient Status: O : BILATERAL DIGITAL SCREENING MAMMOGRAM WITH CAD AND BILATERAL BREAST TOMOSYNTHESIS CLINICAL HISTORY: 64-year-old patient for a screening mammogram. She reports prior benign needle biopsies right breast. She reports prior significant trauma to the left breast. COMPARISON MAMMOGRAMS: 01/01/2023, 02/01/2021, 01/09/2020, 12/02/2018. BREAST DENSITY: (A) - The breasts are almost entirely fatty. FINDINGS: Benign calcifications are present. Marking clips are stable in position on the right. Post-traumatic changes are present on the left. No suspicious masses, suspicious calcifications, or other suspicious findings are seen. No suspicious findings are seen with tomosynthesis IMPRESSION: No suspicious mammographic findings. RECOMMENDATION: Routine screening mammography, bilateral in 1 year BI-RADS ASSESSMENT CATEGORY: 2 - Benign TC8 Lifetime model risk: 7.3%. A lifetime risk of 20% or greater is considered to be high risk. For patients at this risk level, the [employer] recommends yearly MRI in addition to mammography for breast cancer screening. This case was evaluated by [facility] [facility] [employer] [facility] The patient will be notified of these results by mail. Not all breast cancers are detectable by mammography. A negative imaging report should not deter biopsy of a clinically suspicious finding. Edited by: Maine Elmore on 09/09/2024 8:53 AM Thank you for your referral. For physician to physician consultation about this report or any other Radiology matter, you can reach me or any of our Radiologists through [facility] Customer Care Line at [phone]. PATIENTS: Please call your referring physician to discuss the results of this study. LOCATION: [address] Final Dictated by: Diana Lopez MD Dictated DT/TM: 09/09/2024 8:40 am Signed by: Diana Lopez MD Signed (Electronic Signature): 09/09/2024 9:13 am System [id number] Performed by [facility] Department of Radiology Pap w/HPV/rfx 16/18,45- 4 Reviewed date:10/14/2024 05:15:37 PM Interpretation:pap/HPV neg Performing Lab:[facility], [address] [facility], Phone - [phone], Director - Donaldo Notes/Report: Clinical Information:[id number] No. of containers..01 ThinPrep Vial Interpretation NILM NEGATIVE FOR INTRAEPITHELIAL LESION OR MALIGNANCY. Category: NIL Negative for In traepithelial Lesion Adequacy: ENDO Satisfactory for evaluation. Endocervical and/or squamous metaplastic cells (endocervical component) are present. Clinician provided ICD10: Z0 1.419 Performed by: Isabel Strong , Radiation Oncologist (ASCP) Note: The Pap smear is a screening test designed to aid in the detection of premalignant and malignant conditions of the uterine cervix. It is not a diagnostic procedure and should not be used as the sole means of detecting cervical cancer. Both false-positive and false-negative reports do occur. . Test Methodology: This liquid based ThinPrep(R) pap test was interpreted using the SoPost(R) Genius(TM) Cervical Algorithm whole slide imaging system. HPV Aptima Negative Negative This nucleic acid amplification test detects fourteen high-risk HPV types (16,18,31,33,35,39,45,51,52,56 ,58,59,66,68) without differentiation. Reason For Referral No Information Medications Medication SIG (Take, Route, Frequency, Duration) Notes Start Date End Date Status Hydroxychloroquine Sulfate 2 00 MG Oral; Duration: 30 Days Active Synthroid 100 MCG Oral 04/01/2009 A ctive Protonix 40 MG 1 tablet by mouth on ce a day Oral Active Pepcid 40 MG 1 tablet by mouth on ce a day Oral Active Lipitor 10 MG Oral Active Immunizations Vaccine Route Administration Date Status Comme nts Hep A, Adult Unknown 04/14/2010 Administered ? Hep A-Hep B Unknown 04/14/2010 Administered Completed 1 06/15/2009 Hep A-Hep B Unknown 05/19/2010 Administered 2nd Shot to day: 05/19/2010 Hep A-Hep B Unknown 10/05/2010 Administered Completed 0 10/05/2010 Hep A-Hep B Unknown 11/14/2016 Administered Given Previ ously Hep B, adult (2 dose schedule) Unknown 04/14/2010 Administered ? Influenza (whole) Unknown 04/14/2010 Administered Given Previously Influenza (whole) Unknown 01/09/2013 Administered Compl eted 01/09/2013 Influenza (whole) Unknown 01/26/2015 Administered Compl eted 01/26/2015 Influenza (whole) Unknown 01/06/2020 Administered Compl eted 01/06/2020 Tdap Unknown 04/14/2010 Administered Completed Tdap Unknown 11/14/2016 Administered Given Previo usly Problems Problem Type SNOMED Code ICD Code Onset Dates Problem Status W/U Status Risk Notes Problem Vaccine product containing only acellular Bordetella pertussis and Clostridium tetani and Corynebacterium diphtheriae antigens (medicinal product) (349206200) Diphtheria-tetan us-pertussis, combined [DTP] [DtaP] (V06.1) 010 Problem resolved confirmed Stop Date:08/2011 Problem Candidiasis of mouth (61833744) Candidal stomatitis (B37.0) 021 Problem resolved confirmed Stop Date:03/2022 Problem Hypothyroidism (68288475) Hypothyroidism, unspecified (E03.9) 009 Active confirmed Problem Metabolic syndrome (201019064) Metabolic syndrome (E88.81) 009 Problem resolved confirmed Stop Date:08/2011 Problem Insomnia (257962190) Insomnia, unspecified (G47.00) 021 Active confirmed Problem Fibromyalgia (272421128) Fibromyalgia (M79.7) 007 Active confirmed Problem Disorder of kidney and/or ureter (222787970) Disorder of kidney and ureter, unspecified (N28.9) Active confirmed Problem Cyst of ovary (69847266) Unspecified ovarian cysts (N83.20) 013 Problem resolved confirmed Stop Date:09/2014 Problem Functional cardiac murmur (52008738) Benign and innocent cardiac murmurs (R01.0) 008 Inactive confirmed Stop Date:08/2011S ource Status : Correcti on; Problem Abnormal findings on diagnostic imaging of breast (474909108) Other abnormal and inconclusive findings on diagnostic imaging of breast (R92.8) 009 Problem resolved confirmed Stop Date:08/2011 Problem Gynecological examination normal (598906344151951) Encounter for gynecological examination (general) (routine) without abnormal findings (Z01.419) 022 Inactive confirmed Stop Date: Problem Vaccination given (761963865) Encounter for immunization (Z23) 010 Problem resolved confirmed Stop Date:08/2011 Problem Health status (392283224) Other specified health status (Z78.9) 013 Active confirmed Problem Family history of malignant neoplasm of gastrointestinal tract (935423875) Family history of malignant neoplasm of digestive organs (Z80.0) 007 Active confirmed Problem History of infectious disease of central nervous system (391719773) Personal history of infections of the central nervous system (Z86.61) 020 Active confirmed Problem Postprocedural states (900447233) Other specified postprocedural states (Z98.89) 009 Problem resolved confirmed Stop Date:01/2009 Vital Signs Heart Rate 75 /min 10/08/2024 Blood pressure diastolic 80 mm Hg 10/08/2024 Height-cm 167.64 cm 10/08/2024 Weight-kg 147.42 kg 10/08/2024 Height 66 in 10/08/2024 Blood pressure systolic 118 mm Hg 10/08/2024 Weight 325 lbs 10/08/2024 BMI 52.45 kg/m2 10/08/2024 Encounters Encounter Location Date Provider Diagnosis Wilbert Anguiano Can [address] [place], [place] [id number] 10/08/2024 Bhumi Oliva Well woman exam Z01.419 and Visit for screening mammogram Z12.31 Wilbert Segundo [address] [place], [place] [id number] 08/25/2024 Bhumi Sloan [address] [place] [id number] 09/16/2024 Bhumi Oliva Assessments Encounter Date Diagnosis (ICD Code) Assessment Notes Treatment Notes Treatment Clinical Notes Section Notes 10/08/2024 Well woman exam (ICD-10 - Z01.419) declined vaginal estrogen. Discussed no paps after 65 10/08/2024 Visit for screening mammogram (ICD-10 - Z12.31) Plan Of Treatment Pending Test Test Name Order Date [facility] Mammo 3D HD Screening [place]ao 10/08/2024 [facility] Mammo 3D HD Screening [place] 08/25/2024 Insurance Providers Payer Name Payer Address Payer Phone Subscriber Number Group Number Insured Name Patient Relationship to Insured Coverage Start Date Coverage End Date [place] Part B - [facility] Mail Code AG -600 [address] [place] [address] [id number] [employer], Mylinda Self - patient is the insured 3 [facility] - Medicare Advantage [address] [address] [place] [address] [id number] [employer], Mylinda Self - patient is the insured 3 Medical (General) History Medical History History ICD Code hypothyroid kidney dysfunction permenant due to meds Muscular/Skeletal: (Fibromyalgia. 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
--- OUTSIDE RECORDS SUMMARY | 2025-01-12 13:14 | XMS_ITS | Patient Health Record ---
Author Organization [facility] Address [address] [place] [address] Care Team Providers Care Gas Cutter Name Role Phone Tarun Muniz Primary Care Provider Bhavesh Fraser Unavailable [phone] Allergies Allergen (clinical drug ingredient) Drug/Non Drug Allergy documented on EMR Reaction Allergy Type Onset Date Status NSAIDS (uncoded) Unknown Allergy Act karma Reason For Referral No Information Medications Medication SIG (Take, Route, Fr equency, Duration) Notes Start Date End Date Status Medrol Dosepak 4 mg each row, each day i n the AM with a meal, do not spread throughtout the day 06/15/2022 Active naltrexone Active Amitriptyline Active Protonix Active Pepcid Active Flexeril Active Synthroid Active Social History Tobacco Use: Social History Observation Description Date Details (start date - stop date) Never Smoker NA - NA Smoking Question Answer Notes Are you a: Non Smoker Problems Problem Type SNOMED Code ICD Code Onset Dates Problem Status W/U Status Risk Notes Problem [id number] Spondylolisthesi s of lumbar region (M43.16) Active confirmed Problem Lumbar spondylosis (083321847) Lumbar spondylosis (M47.816) Active confirmed Plan Of Treatment Pending Test Test Name Order Date Lumbar Spine 2V STANDING (AP,Lat) 2022 Insurance Providers Payer Name Payer Address Payer Phone Subscriber Number Group Number Insured Name Patient Relationship to Insured Coverage Start Date Coverage End Date [employer] [address] [place] [phone] [id number] Kody Wilcox Self - patient is the insured 3 Medical (General) History Medical History History ICD Code Arthritis Yes, Kidney disease Yes, Thyroid disease Yes, Surgical History Surgery Date(Month/Year) Bladder Surgery 1978 Sinus surgery 1985 C Section 2 Tubal ligation 1999 Knee Replacement - Left 2020 Knee Replacement - Right 2018 Hospitalization History Reason Date(Month/Year) Nerve issue Meningitis
--- OUTSIDE RECORDS SUMMARY | 2025-01-12 13:14 | XMS_ITS | Clinical Summary ---
Author Organization [facility] Address [address] [place] [id number] Care Team Providers Care Junior Account Executive Name Role Phone Tarun Muniz MD Primary Care Provider Vijay Mullen MD Unavailable Thien Jackson MD Unavailable Caleb MARR MD, James William Unavailable + Devang Yap MD Unavailable Joaquín Mcmullen MD Unavailable [phone] Allergies Active Allergy Reactions Criticality Noted Date Comments Adhesive 07/16/2019 Tape Latex 07/22/2019 Nsaids (Non-Steroidal Anti-Inflammatory Drug) Other (see comments) 06/11/2020 For Kidney resaons Psyllium Hives High 02/03/2021 Medications levothyroxine (SYNTHROID) 100 mcg tablet Take 1 tablet by mouth daily. 5 Active Arthritis Pain Relief, acetam, 650 mg 8 hr tablet Take 650 mg by mouth every 8 (eight) hours as needed . 0 Active ondansetron (ZOFRAN) 4 mg tablet Take 4 mg by mouth every 8 (eight) hours as needed . 0 Active famotidine (PEPCID) 40 mg tablet Take 40 mg by mouth daily. 1 Active sulfacetamide-sulf ur (SULFACLEANSE) 8-4 % topical suspension 1 Active amitriptyline (ELAVIL) 50 mg tablet Take 50 mg by mouth nightly. 3 Active atorvastatin (LIPITOR) 20 mg tabletIndications: Mixed hyperlipidemia Take 1 tablet (20 mg total) by mouth daily. 100 tablet 1 3 Active hydroxychloroquine (PLAQUENIL) 200 mg tablet Take 200 mg by mouth 2 (two) times a day. Active traMADol ER (ULTRAM-ER) 200 mg 24 hr tablet Take 200 mg by mouth daily. 4 Active montelukast (SINGULAIR) 10 mg tablet Take 10 mg by mouth nightly. Active miscellaneous medication MaryRuth Probiotic . Active turmeric (CURCUMIN MISC) Active hydrOXYzine HCL (ATARAX) 25 mg tabletIndications: Tinea corporis,Localized pruritus Take 1-2 tablets (25-50 mg total) by mouth every 8 (eight) hours as needed for itching. 120 tablet 5 Active ketoconazole (NIZORAL) 2 % creamIndications:T inea corporis Apply topically 2 (two) times a day. 60 g 5 07/17/19 26 Active metFORMIN (GLUCOPHAGE) 500 mg tabletIndications: Type 2 diabetes mellitus with other specified complication, without long-term current use of insulin (HCC) Take 1 tablet (500 mg total) by mouth daily with breakfast. 100 tablet 1 5 08/05/19 26 Active pantoprazole (PROTONIX) 40 mg EC tabletIndications: Gastroesophageal reflux disease without esophagitis Take 1 tablet (40 mg total) by mouth daily. 100 tablet 5 08/05/19 26 Active DULoxetine (CYMBALTA) 60 mg capsuleIndications :Chronic renal insufficiency, stage 3 (moderate),Fibromy algia Take 1 capsule (60 mg total) by mouth 2 (two) times a day. 200 capsule 5 Active meclizine (ANTIVERT) 25 mg tabletIndications: Vertigo Take 1 tablet (25 mg total) by mouth 3 (three) times a day as needed for dizziness. 270 tablet 5 Active pregabalin (LYRICA) 75 mg capsuleIndications :Fibromyalgia Take 1 capsule (75 mg total) by mouth 2 (two) times a day. 180 capsule 1 5 06/25/19 Active buPROPion SR (WELLBUTRIN SR) 150 mg 12 hr tabletIndications: Anxiety Take 1 tablet (150 mg total) by mouth 2 (two) times a day. 180 tablet 1 5 06/25/19 Active Active Problems Problem Noted Date Diagnosed Date Prediabetes 08/13/2023 Assessment & Plan (12/26/2024 4:04 PM EDT): Last A1C was 6.5 into diabetes range to recheck today, prior was 5.7 to repeat glucose and A1C check. On metformin to see if still needed. Orders: Comprehensive Metabolic Panel; Future Hemoglobin A1c; Future Assessment & Plan (07/16/2024 5:20 PM EDT): Borderline sugars for A1C and sugar levels today Orders: Hemoglobin A1c Assessment & Plan (08/16/2023 7:14 PM EDT): To check borderline glucose with A1C today Body mass index (BMI) 50.0-59.9, adult ([facility]) 01/25/2022 H/O meningitis 03/23/2020 Assessment & Plan (12/07/2020 4:53 PM EDT): Bacterial that left a permanent injury of blindness Assessment & Plan (05/07/2020 8:20 PM EST): With residual effects Assessment & Plan (03/23/2020 4:34 PM EST): With sequelae including fatigue and blindness Anxiety 11/14/2019 Assessment & Plan (12/26/2024 4:04 PM EDT): Worsening since mother's passing on duloxtine and on amitriptyline already. Instead of adding serotonin to add back NDRI-wellbutrin. Orders: CBC with Auto Differential; Future Comprehensive Metabolic Panel; Future buPROPion SR (WELLBUTRIN SR) 150 mg 12 hr tablet; Take 1 tablet (150 mg total) by mouth 2 (two) times a day. Assessment & Plan (06/11/2020 6:14 PM EST): Slow improvement but not well Assessment & Plan (03/23/2020 4:28 PM EST): Start on fluoxetine may have been on this ins the Assessment & Plan (11/14/2019 8:25 AM EDT): On wellbutrin with Endo add hydroxyzine PRN for stress discussed sedation side effect- stop OTC herbierto while on the hydroxyzine 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 Assessment & Plan (08/31/2020 6:16 PM EDT): Having permanent residual side effects that should restrict work Assessment & Plan (08/05/2020 8:22 AM EDT): Having permanent residual effects Assessment & Plan (06/11/2020 6:14 PM EST): Still having residual effects Assessment & Plan (11/14/2019 8:26 AM EDT): Resolved seeing ID- Dr Jackson Blindness of left eye, 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 09/01/2019 Overview (03/23/2020): Secondary to bacterial meningitis Assessment & Plan (12/26/2024 4:04 PM EDT): From prior meningitis infection, still has left eye blindness Assessment & Plan (01/25/2022 7:14 PM EDT): Secondary to meningitis seems stable Assessment & Plan (04/01/2021 4:25 PM EST): Seen by eye doc and now seeing Neuro Assessment & Plan (12/07/2020 4:52 PM EDT): Secondary to bacterial meningitis Assessment & Plan (11/11/2020 5:37 PM EDT): Secondary to bacterial meningitis- looks like this is a permanent injury Assessment & Plan (08/31/2020 6:16 PM EDT): Secondary to bacterial meningitis- with permanent issues Assessment & Plan (08/05/2020 8:22 AM EDT): Having permanent residual effects from the bacterial meningitis. Was seen by ID and Opthamalogy at time of issue Assessment & Plan (06/11/2020 6:15 PM EST): Still having residual effects from bacterial meningitis Assessment & Plan (05/07/2020 8:20 PM EST): Secondary to bacterial meningitis From 05/2019 Assessment & Plan (03/23/2020 4:27 PM EST): Secondary to bacterial meningitis bout Assessment & Plan (11/14/2019 8:26 AM EDT): Secondary to bacterial meningitis Assessment & Plan (09/01/2019 10:08 AM EDT): Secondary to bacterial meningitis- seeing ID- Dr Jackson- consider regain PT for drivers eval Anemia 07/24/2019 Assessment & Plan (08/31/2020 6:16 PM EDT): To recheck to see if further anemic Assessment & Plan (11/14/2019 7:45 AM EDT): To monitor Chronic renal insufficiency, stage 3 (moderate) 06/02/2019 Assessment & Plan (12/26/2024 4:04 PM EDT): Will need to recheck and renally dose meds if necessary Assessment & Plan (07/16/2024 5:20 PM EDT): To monitor was stage 3A Orders: Comprehensive Metabolic Panel Assessment & Plan (08/16/2023 7:12 PM EDT): To monitor renal functions will check labs today Assessment & Plan (02/28/2023 5:17 PM EST): To monitor renal functions Assessment & Plan (09/15/2022 9:50 AM EDT): Seeing Renal. To check labs today watch use of PPI and famotidine Assessment & Plan (01/25/2022 7:14 PM EDT): Seeing renal to recheck labs today H/O cold sores 03/19/2017 Assessment & Plan (11/14/2019 8:26 AM EDT): Refill done Assessment & Plan (04/18/2018 12:23 PM EST): Valtrex rx done can take BID for 1 week or 2 pills now and in 12 hours (4 pills in one day for one day) GERD (gastroesophageal reflux disease) 7 Assessment & Plan (08/16/2023 7:13 PM EDT): Stable to refill pantoprazole and monitor renal functiosn today Assessment & Plan (02/28/2023 5:16 PM EST): Stable to refill pantoprazole Assessment & Plan (01/25/2022 7:14 PM EDT): On PPI to refill today and monitor renal panel Assessment & Plan (04/01/2021 4:25 PM EST): On PPI watch use as it can cause the thrush Assessment & Plan (11/11/2020 5:37 PM EDT): Refill pantoprazole Assessment & Plan (03/03/2019 8:12 AM EST): Trial of dexilant Assessment & Plan (02/22/2018 7:57 AM EDT): On pantoprazole to discuss snf effects of PPI Hyperlipidemia 11/29/2016 Assessment & Plan (12/26/2024 4:04 PM EDT): Seems that lipid is Stable today. To continue on current medication regimen. To stay on atorvastatin For fasting labs and check on liver when fasting Orders: CBC with Auto Differential; Future Comprehensive Metabolic Panel; Future Lipid panel; Future Assessment & Plan (07/16/2024 5:20 PM EDT): On atorvastatin. Stable, no active issues today. To refill meds and check labs Orders: CBC with Auto Differential Comprehensive Metabolic Panel Lipid panel Assessment & Plan (08/16/2023 7:13 PM EDT): On a statin. Stable, no active issues today. To refill meds and check labs Assessment & Plan (02/28/2023 5:17 PM EST): On atorvastatin, to refill meds today Assessment & Plan (09/15/2022 9:48 AM EDT): For fasting labs Stable, no active issues today. To refill meds when needed and check labs Assessment & Plan (01/25/2022 7:14 PM EDT): For fasting labs On atorvastatin Assessment & Plan (04/01/2021 4:25 PM EST): Stable to refill meds Assessment & Plan (02/15/2021 8:14 PM EDT): For fasting labs Assessment & Plan (11/11/2020 5:37 PM EDT): For fasting labs Assessment & Plan (08/05/2020 8:23 AM EDT): Per patient has labs checked with Endo Assessment & Plan (03/10/2020 7:46 PM EST): For fasting labs Assessment & Plan (08/28/2019 5:47 PM EDT): For fasting labs Assessment & Plan (02/17/2019 10:13 PM EDT): For fasting labs Assessment & Plan (02/22/2018 7:58 AM EDT): To check fasting labs today Assessment & Plan (05/21/2017 5:48 PM EST): May need to check this in future Allergic rhinitis 11/04/2015 Overview (05/21/2017): Seeing an paster operator. Assessment & Plan (07/16/2024 5:20 PM EDT): Assessment & Plan (07/16/2019 1:38 PM EDT): To see paster operator Assessment & Plan (05/21/2017 5:49 PM EST): Seeing an paster operator. Fibromyalgia 11/04/2015 Assessment & Plan (12/26/2024 4:04 PM EDT): Worsening suspect due to worsening anxiety has tramadol and duloxetine will restart on lyrica for pain control. Was on 75 mg TID to start BID first. Orders: Uric acid; Future pregabalin (LYRICA) 75 mg capsule; Take 1 capsule (75 mg total) by mouth 2 (two) times a day. Assessment & Plan (08/16/2023 7:13 PM EDT): To see if duloxetine BID can help Assessment & Plan (04/01/2021 4:25 PM EST): On LDN with Neuro and seem better Assessment & Plan (12/07/2020 4:53 PM EDT): Has flares unable to take pain meds due to renal functions Assessment & Plan (11/11/2020 8:28 AM EDT): Seeing rheumatology on cymbalta Assessment & Plan (08/31/2020 6:17 PM EDT): Will be seeing rheumatology Assessment & Plan (06/11/2020 6:15 PM EST): Will be seeing a new mems process engineer Assessment & Plan (03/03/2019 8:13 AM EST): Seeing rheumatology Dr Parsons Hypothyroidism 11/04/2015 Assessment & Plan (12/26/2024 4:04 PM EDT): On generic synthroid. Seems stable on current dosing. For thyroid level, to readjust med dosing pending labs Orders: TSH; Future T4, free; Future Assessment & Plan (07/16/2024 5:20 PM EDT): On synthroid. Seems stable on current dosing. For thyroid level, to readjust med dosing pending labs Orders: TSH T4, free Assessment & Plan (08/16/2023 7:13 PM EDT): Seeing Endo. For thyroid level, to readjust med dosing pending labs Assessment & Plan (09/15/2022 9:50 AM EDT): Seeing Endo. For thyroid level to check labs Assessment & Plan (01/25/2022 7:14 PM EDT): For thyroid level Seeing Endo will send copy of labs to them Assessment & Plan (02/15/2021 8:14 PM EDT): Seeing Endo Assessment & Plan (08/31/2020 6:17 PM EDT): This is checked by Endo Assessment & Plan (08/05/2020 8:23 AM EDT): Per patient has labs checked with Endo Assessment & Plan (03/23/2020 4:28 PM EST): Seeing Endo, For thyroid level Assessment & Plan (11/14/2019 8:25 AM EDT): For thyroid level Seeing Endo but would like this checked Assessment & Plan (03/03/2019 8:13 AM EST): Seeing Endo Assessment & Plan (02/22/2018 6:47 PM EDT): Seeing endocrinology Assessment & Plan (05/21/2017 5:48 PM EST): May need to check this in future Sleep apnea 11/04/2015 Resolved Problems Problem Noted Date Diagnosed Date Resolved Date Current moderate episode of major depressive disorder without prior episode ([facility]) 03/23/2020 08/05/2020 Assessment & Plan (05/07/2020 8:20 PM EST): Secondary to meningitis Assessment & Plan (04/27/2020 5:47 PM EST): To monitor as father just passed Acute kidney failure 07/23/2019 021 Essential hypertension 07/08/201911/11 Assessment & Plan (08/31/2020 6:17 PM EDT): Stable BP today Assessment & Plan (08/05/2020 8:22 AM EDT): Stable BP Assessment & Plan (06/11/2020 6:15 PM EST): Feels it is doing well BMI 45.0-49.9, adult ([facility]) 11/29/2016 03/19/2017 Never smoked tobacco 11/29/2016 017 Encounter for preventive health examination 04/10/2016 03/19/2017 Obesity 11/04/2015 03/19/2017 Encounters Date Type Department Care Team Description 01/02/2025 Results Follow-Up [facility] [address] [place] [address] Tarun Muniz MD 12/26/2024 7:45 AM EDT Office Visit [facility] [address] [place] [address] Tarun Muniz MD Anxiety (Primary Dx); Chronic renal insufficiency, stage 3 (moderate) ([facility]); Fibromyalgia; Mixed hyperlipidemia; Acquired hypothyroidism; Prediabetes; Blindness of left eye, unspecified right eye visual impairment category; Flu vaccine need; Need for influenza vaccination 12/12/2024 Refill [facility] [address] [place] [address] Tarun Muniz MD Vertigo (Primary Dx) 11/07/2024 Refill [facility] [address] [place] [address] Tarun Muniz MD 11/07/2024 Refill [facility] [address] [facility] [address] [place] [address] Tarun Muniz MD Gastroesophageal reflux disease without esophagitis; Chronic renal insufficiency, stage 3 (moderate) ([facility]); Fibromyalgia from Last 3 Months Immunizations Immunization Administration Dates Next Due Hep A / Hep B 11/14/2016, 1,05/19/2010,2009 Hep B, Adult 04/14/2010 Hepatitis A 04/14/2010 Influenza (IM) Preservative Free (IIV3 6M+ PF) 12/26/2024 Influenza (IM) Preservative Free (IIV4 6M+ PF) 02/01/2023,01/25/2022,02/22/2018,2013 Influenza (IM) Recombinant P F (RIV4 18Y+ PF) 02/08/2019 Influenza (IM) With Preserva tive (IIV3 6M+) 02/19/2024,02/04/2010 Influenza (IM) With Preserva tive (IIV4 6M+) 02/01/2023,02/07/2017 Influenza Split 02/04/2010 Influenza Vaccine, Unspecified 4,02/08/2019,02/07/2017,2013 Influenza Whole 01/06/2020, 5,01/09/2013,2009 Influenza, live, intranasal, quadrivalent 02/08/2019,02/07/2017 MMR 02/14/1994,12/30/1993 Moderna - SARS-CoV-2 PF mono valent vaccine, LNP-S mRNA, 50 mcg-100 mcg dose 03/23/2021,01/06/2021 Tdap 02/14/2023,11/14/2016,04/14/2010 Zoster (Shingles) Vaccine (H ZV), Recombinant, Adjuvanted, 2 Shot Series 03/23/2021,12/07/2020 Family History Medical History Relation Name Comments Heart disease Father Cristopher Hairston Hypertension Father Cristopher Hairston Learning disabilities Father Cristopher Hairston Stroke Father Cristopher Hairston Vision loss Father Cristopher Hairston Arthritis Maternal Grandmother Homa Bobo Arthritis Mother Domonique Hairston Heart disease Mother Domonique Hairston Hypertension Mother Domonique Hairston Heart disease Paternal Grandfather Dewayne Bobo Relation Name Status Comments Father Cristopher Hairston Maternal Grandmother [place] Mother Domonique Hairston Paternal Grandfather Dewayne Bobo Social History Tobacco Use Types Packs/Day Years Used Date Smoking Tobacco: Never Smokeless Tobacco: Never Tobacco Cessation:Counseling Given: Not Answered Alcohol Use Standard Drinks/Week Comments Never 0 (1 standard drink = 0.6 oz pur e alcohol) AUDIT-C Answer Date Recorded Frequency of Alcohol Consumption Not on file 05/19/2019 Average Number of Drinks Not on file 020 Q3: How often do you have si x or more drinks on one occasion? Never 05/19/2019 Depression Answer Date Recorded PHQ-9 Score 10 03/23/2020 Comments No Sex and Gender Information Value Date Recorded Sex Assigned at Female 05/06/2020 1:58 PM EST Legal Sex Female 4:20 PM EDT Gender Identity Female 05/06/2020 1:57 PM EST Sexual Orientation Straight 05/06/2020 1: 57 PM EST Last Filed Vital Signs Vital Sign Reading Time Taken Comments Blood Pressure 126/80 12/26/2024 7:50 AM EDT Pulse 85 12/26/2024 7:50 AM EDT Temperature 36.4 C (97.5 F) 12/26/2024 7:50 AM EDT Respiratory Rate 14 12/26/2024 7:50 AM EDT Oxygen Saturation 99% 12/26/2024 7:50 AM EDT Inhaled Oxygen Concentration - - Weight 151 kg (332 lb 12.8 oz) 12/26/2024 7:50 A M EDT Height 167.6 cm (5' 6 ) 12/26/2024 7:50 AM EDT Body Mass Index 53.72 12/26/2024 7:50 AM EDT Plan of Treatment Health Maintenance Due Date Last Done Comments Cologuard 1960 FOBT/FIT 1960 HIV Screening 1960 Sigmoidoscopy 1960 Annual Visit Non Medicare 08/21/1963 Foot Exam 1970 Ophthalmology Exam 1970 Pneumococcal Vaccine 50+ (1 of 2 - PCV) 08/21/1979 Pap Smear 1981 Mammogram 2000 Alcohol Screening 05/19/2020 05/19/2019 RSV Vaccine (1 - Risk 60-74 years 1-dose series) 2020 Depression Screening 03/23/2021 03/23/2020, 03/03/20 19 (IPPE) Medicare Initial Preventive Physical Exam 09/21/2022 AWV Medicare Annual Wellness Visit 09/21/2022 Annual Visit 09/21/2022 COVID-19 Vaccine ( season) 2024 03/23/2021, 01/06/2021 Hemoglobin A1C 04/03/2025 01/02/2025, 06/22, 08/16/2023, Additional history exists Lipid Panel 01/02/2030 01/02/2025, 06/22, 08/16/2023, Additional history exists Colonoscopy 07/26/2031 07/25/2021 Colorectal Cancer Screening 07/26/2031 DTaP,Tdap,and Td Vaccines (4 - Td or Tdap) 02/14/2033 02/14/2023, 11/14/2016, 04/14/2010 MMR Vaccines Completed 02/14/1994, 12/30/1993 Hepatitis A Vaccines Aged Out 11/14/2016, 10/05/2010, 05/19/2010, Additional history exists No longer eligible based on patient's age to complete this topic Hepatitis B Vaccines Completed 11/14/2016, 10/05/2010, 05/19/2010, Additional history exists Hepatitis C Screening Completed 11/14/2019 Zoster Vaccines Completed 03/23/2021, 12/07/2020 Influenza Vaccine Completed 12/26/2024, , 01/31/2024, Additional history exists HIB Vaccines Aged Out No longer eligi ble based on patient's age to complete this topic IPV Vaccines Aged Out No longer eligi ble based on patient's age to complete this topic Meningococcal Vaccine Aged Out No michel lorena eligible based on patient's age to complete this topic Procedures Procedure Name Priority Date/Time Associated Diagnosis Comments URIC ACID Routine 01/02/2025 10:21 AM EDT Fibromyalgia T4, FREE Routine 01/02/2025 10:21 AM EDT Acquired hypothyroidism TSH Routine 01/02/2025 10:21 AM EDT Acquired hypothyroidism LIPID PANEL W/ DIRECT LDL Routine 01/02/2025 10:21 AM EDT Mixed hyperlipidemia HEMOGLOBIN A1C Routine 01/02/2025 10:21 AM EDT Prediabetes COMPREHENSIVE METABOLIC PANEL Routine 01/02/2025 10:21 AM EDT Anxiety Mixed hyperlipidemia Prediabetes CBC W/ AUTO DIFFERENTIAL Routine 01/02/2025 10:21 AM EDT Anxiety Mixed hyperlipidemia FLU VACCINE TRIVALENT PRESERVATIVE FREE SPLIT IM Routine 12/26/2024 8:23 AM EDT Need for influenza vaccination AMB REFERRAL FOR SCANNING 11/25/2024 AMB REFERRAL FOR SCANNING 10/13/2024 HM COLONOSCOPY Routine 07/25/2021 HEPATITIS C ANTIBODY Routine 11/14/2019 8:26 AM EDT Encounter for hepatitis C screening test for low risk patient from Last 3 Months or Most Recently Relevant to Health Maintenance Results * (ABNORMAL) CBC with Auto Differential (01/02/2025 10:21 AM EDT) WBC 7.6 4.8 - 10.8 K/uL LAB HEMATOLOGY METHOD 01/02/2025 12:48 PM [facility] RBC 4.24 4.20 - 5.40 M/uL LAB HEMATOLOGY METHOD 01/02/2025 12:48 PM [facility] HEMOGLOBIN 13.1 12.0 - 16.0 g/dL LAB HEMATOLOGY METHOD 01/02/2025 12:48 PM [facility] HEMATOCRIT 41.6 37.0 - 47.0 % LAB HEMATOLOGY METHOD 01/02/2025 12:48 PM [facility] MCV 98.1 81.0 - 99.0 fL LAB HEMATOLOGY METHOD 01/02/2025 12:48 PM [facility] MCH 30.9 27.0 - 31.0 pg LAB HEMATOLOGY METHOD 01/02/2025 12:48 PM [facility] MCHC 31.5(L) 33.0 - 37.0 % LAB HEMATOLOGY METHOD 01/02/2025 12:48 PM [facility] RDW SD 50.1(H) 35.1 - 43.9 fL LAB HEMATOLOGY METHOD 01/02/2025 12:48 PM [facility] RDW CV 13.8 11.5 - 14.9 % LAB HEMATOLOGY METHOD 01/02/2025 12:48 PM [facility] PLATELETS 246 130 - 400 K/uL LAB HEMATOLOGY METHOD 01/02/2025 12:48 PM [facility] MPV 10.4 9.5 - 14.4 fL LAB HEMATOLOGY METHOD 01/02/2025 12:48 PM [facility] NEUTROPHILS ABS 4.20 2.00 - 8.10 K/uL LAB HEMATOLOGY METHOD 01/02/2025 12:48 PM [facility] LYMPHOCYTES ABS 2.52 0.75 - 5.50 K/uL LAB HEMATOLOGY METHOD 01/02/2025 12:48 PM [facility] MONOOCYTES ABS 0.57 0.00 - 1.20 K/uL LAB HEMATOLOGY METHOD 01/02/2025 12:48 PM [facility] EOSINOPHILS ABS 0.26 0.00 - 0.75 K/uL LAB HEMATOLOGY METHOD 01/02/2025 12:48 PM [facility] BASOPHILS ABS 0.04 0.00 - 0.40 K/uL LAB HEMATOLOGY METHOD 01/02/2025 12:48 PM [facility] IMMATURE GRANULOCYTES ABS 0.05 0 - 3 K/uL LAB HEMATOLOGY METHOD 01/02/2025 12:48 PM [facility] NEUTROPHILS % 55 42 - 75 % LAB HEMATOLOGY METHOD 01/02/2025 12:48 PM [facility] LYMPHOCYTES % 33.00 16.00 - 52.00 % LAB HEMATOLOGY METHOD 01/02/2025 12:48 PM [facility] MONOOCYTES % 8 0 - 11 % LAB HEMATOLOGY METHOD 01/02/2025 12:48 PM [facility] EOSINOPHILS % 3 0 - 7 % LAB HEMATOLOGY METHOD 01/02/2025 12:48 PM [facility] BASOPHILS % 1 0 - 4 % LAB HEMATOLOGY METHOD 01/02/2025 12:48 PM [facility] IMMATURE GRANULOCYTES REL 1 0% % LAB HEMATOLOGY METHOD 01/02/2025 12:48 PM [facility] nRBC 0 No established reference range /100 WBCs LAB HEMATOLOGY METHOD 01/02/2025 12:48 PM [facility] Absolute nRBC 0.00 No established reference range K/uL LAB HEMATOLOGY METHOD 01/02/2025 12:48 PM [facility] Blood (Blood, Venous) Venipuncture / Unknown 01/02/2025 10:21 AM EDT 01/02/2025 10:21 AM EDT Tarun Muniz MD LAB BLOOD ORDERABLES Final Resu lt [facility] [address] [place] [address], * (ABNORMAL) Uric acid (01/02/2025 10:21 AM EDT) Uric Acid 7.6(H) 2.5 - 6.2 mg/dL LAB CHEMISTRY METHOD 01/02/2025 1:04 PM [facility] Blood (Blood, Venous) Venipuncture / Unknown 01/02/2025 10:21 AM EDT 01/02/2025 10:21 AM EDT us Tarun Muniz MD LAB BLOOD ORDERABLES Final Resu lt Performing Organization Address [facility]/ZIP Co de Phone Number [facility] [address] [place] [address], * TSH (01/02/2025 10:21 AM EDT) Pathologist [facility] TSH 2.701 0.340 - 4.820 uIU/mL LAB CHEMISTRY METHOD 01/02/2025 1:03 PM EDT [facility] Blood (Blood, Venous) Venipuncture / Unknown 01/02/2025 10:21 AM EDT 01/02/2025 10:21 AM EDT us Tarun Muniz MD LAB BLOOD ORDERABLES Final Resu lt Performing Organization Address [facility] Co de Phone Number [facility] [address] [place] [address], * T4, free (01/02/2025 10:21 AM EDT) Pathologist [facility] Free T4 1.10 0.71 - 1.90 ng/dL LAB CHEMISTRY METHOD 01/02/2025 1:04 PM EDT [facility] Blood (Blood, Venous) Venipuncture / Unknown 01/02/2025 10:21 AM EDT 01/02/2025 10:21 AM EDT us Tarun Muniz MD LAB BLOOD ORDERABLES Final Resu lt Performing Organization Address [facility] Co de Phone Number [facility] [address] [place] [address], * (ABNORMAL) Hemoglobin A1c (01/02/2025 10:21 AM EDT) Pathologist [facility] HEMOGLOBIN A1C 6.1(H) <5.7 % 01/02/2025 1:44 PM EDT [facility] Estimated Average Glucose (EAG) 128.37 01/02/2025 1:44 PM EDT [facility] Blood (Blood, Venous) Venipuncture / Unknown 01/02/2025 10:21 AM EDT 01/02/2025 10:21 AM EDT [facility] - 01/02/2025 1:44 PM EDT Hemoglobin A1C Reference Ranges: < 5.7% Normal 5.7% - 6.4% Prediabetes (increased risk for diabetes) >= 6.5% Diabetes Tarun Muniz MD LAB BLOOD ORDERABLES Final Resu lt [facility] [address] [place] [address], * (ABNORMAL) Lipid panel (01/02/2025 10:21 AM EDT) Cholesterol, Total 185.0 <200.0 mg/dl LAB CHEMISTRY METHOD 01/02/2025 1:07 PM [facility] Triglycerides 121 30 - 149 mg/dL LAB CHEMISTRY METHOD 01/02/2025 1:07 PM [facility] HDL 40.90 40.00 - 59.00 mg/dL LAB CHEMISTRY METHOD 01/02/2025 1:07 PM [facility] non-HDL CHOL 144.1(H) <=130 mg/dL LAB CHEMISTRY METHOD 01/02/2025 1:07 PM [facility] LDL Direct 130.0 <=130 mg/dL LAB CHEMISTRY METHOD 01/02/2025 1:07 PM [facility] Blood (Blood, Venous) Venipuncture / Unknown 01/02/2025 10:21 AM EDT 01/02/2025 10:21 AM EDT Narrative [facility] - 01/02/2025 1:07 PM EDT Cholesterol Reference Ranges: Reference Ranges: (mg/dL) <200 Desirable 200-240 Borderline >240 High Risk LDL Reference Ranges: Reference Ranges: (mg/dL) < 100 Desirable 100-129 Low risk 130-159 Borderline high 160-189 High >= 190 Very high Tarun Muniz MD LAB BLOOD ORDERABLES Final Resu lt [facility] [address] [place] [address], * (ABNORMAL) Comprehensive Metabolic Panel (01/02/2025 10:21 AM EDT) SODIUM 139 135 - 148 mmol/L LAB CHEMISTRY METHOD 01/02/2025 1:07 PM [facility] POTASSIUM 4.9 3.5 - 5.2 mmol/L LAB CHEMISTRY METHOD 01/02/2025 1:07 PM [facility] CO2 28 21 - 32 mmol/L LAB CHEMISTRY METHOD 01/02/2025 1:07 PM [facility] CHLORIDE 101 100 - 110 mmol/L LAB CHEMISTRY METHOD 01/02/2025 1:07 PM [facility] BUN 12.0 5.0 - 23.0 mg/dL LAB CHEMISTRY METHOD 01/02/2025 1:07 PM [facility] CREATININE 1.06(H) 0.60 - 1.00 mg/dL LAB CHEMISTRY METHOD 01/02/2025 1:07 PM [facility] GLUCOSE 115(H) 65 - 99 mg/dL LAB CHEMISTRY METHOD 01/02/2025 1:07 PM [facility] AST 23 0 - 48 U/L LAB CHEMISTRY METHOD 01/02/2025 1:07 PM [facility] ALT 20 13 - 61 U/L LAB CHEMISTRY METHOD 01/02/2025 1:07 PM [facility] PROTEIN TOTAL 6.9 6.0 - 8.3 g/dL LAB CHEMISTRY METHOD 01/02/2025 1:07 PM [facility] ALBUMIN 3.7 3.4 - 5 g/dL LAB CHEMISTRY METHOD 01/02/2025 1:07 PM [facility] BILIRUBIN TOTAL 0.61 0.00 - 1.00 mg/dL LAB CHEMISTRY METHOD 01/02/2025 1:07 PM [facility] CALCIUM 9.6 8.4 - 10.6 mg/dL LAB CHEMISTRY METHOD 01/02/2025 1:07 PM [facility] ALK PHOS 84 45 - 136 U/L LAB CHEMISTRY METHOD 01/02/2025 1:07 PM [facility] A/G RATIO 1.16 0.90 - 2.00 Ratio LAB CHEMISTRY METHOD 01/02/2025 1:07 PM [facility] ANION GAP 10.0 4.3 - 12.3 mmol/L LAB CHEMISTRY METHOD 01/02/2025 1:07 PM [facility] EGFR 58.7(L) >60.0 ML/MIN/1. 73M*2 LAB CHEMISTRY METHOD 01/02/2025 1:07 PM [facility] Comment:Calculation based on the Chronic Kidney Disease Epidemiology Collaboration (CKD-EPI) equation refit without adjustment for race. BUN / CREAT RATIO 11.32 10.00 - 24.00 Ratio LAB CHEMISTRY METHOD 01/02/2025 1:07 PM [facility] Blood (Blood, Venous) Venipuncture / Unknown 01/02/2025 10:21 AM EDT 01/02/2025 10:21 AM EDT us Tarun Muniz MD LAB BLOOD ORDERABLES Final Resu lt [facility] [address] [place] [address], * Ext Referral Scanned Results (11/25/2024) Narrative 11/25/2024 Ordered by an unspecified provider. us See Scan Document MD OUTPATIENT REFERRAL ORDERAB LES Final Result * Ext Referral Scanned Results (10/13/2024) Narrative 10/13/2024 Ordered by an unspecified provider. us See Scan Document MD OUTPATIENT REFERRAL ORDERAB LES Final Result * Hm Colonoscopy (07/25/2021) Historical Provider HEALTH MAINTENANCE Final Result * Hepatitis C antibody (11/14/2019 8:26 AM EDT) [facility] Hepatitis C Ab Negative Negative LAB IMMUNOASSAY METHOD 11/14/2019 4:30 PM EDT [facility] Comment:Below Check Blood (Blood, Venous) Venipuncture / Unknown 11/14/2019 8:26 AM EDT 11/14/2019 8:26 AM EDT Tarun Muniz MD LAB BLOOD ORDERABLES Final Resu lt Performing Organization Address City/State/[facility] Co de Phone Number [facility] [address] [place] [address], from Last 3 Months or Most Recently Relevant to Health Maintenance Insurance [id number] [place] [id number] Advance Directives Documents on File Type Date Recorded Patient Eye Technician Expl anation Legal Documents 08/12/2020 Short Term D isability Legal Documents 03/24/2020 Short Term D isability Legal Documents 10/03/2019 Disability F orms Legal Documents 09/01/2019 Guardian Dis ability Paperwork Legal Documents 07/25/2019 Disability F orm Care Teams Junior Account Executive Relationship Specialty Start Date End Date Tarun Muniz MD [address] [place] [address] [address] [place] [address] PCP - General Family Medicine 03/08/18 Vijay Mullen MD [address] [place] [address] Nephrology 07/18/19 [place] [address] [address] [facility] [address] [place], [place] [id number] Infectious Diseases 11/14/19 Anthony Ellis III, MD [address] [place] [address] Orthopaedic Surgery 11/14/19 Devang Yap MD [address] [facility] [address] [place] [address] Neurology 04/01/21 Joaquín Mcmullen MD [address] [place] [address] [address] [place], [place] [id number] Pain Medicine 08/16/23 Rosa Motta Endocrinology 09/15/22
--- OUTSIDE RECORDS SUMMARY | 2025-01-12 13:15 | XMS_ITS | Encounter Summary ---
Author Organization [facility] Address [address] [place] [address] Care Team Providers Care Naphtha Washing System Operator Name Role Phone Tarun Muniz MD Primary Care Provider Vijay Mullen MD Unavailable [phone] Thien Jackson MD Unavailable [phone] Caleb MARR MD, James William Unavailable + Kelsy Ferrell MD Unavailable Devang Yap MD Unavailable [phone] Joaquín Mcmullen MD Unavailable Encounter Details Date Type Department Care Team (Late st Contact Info) Description 07/24/2019 Lab Requisition [facility] [place] [address] [place] [id number] Tarun Muniz MD [address] [id number] Hyperlipidemia, unspecified; Other abnormal glucose Social History Tobacco Use Types Packs/Day Years [...] Procedure Name Priority Date/Time Associated Diagnosis Comments MANUAL DIFFERENTIAL REGULAR Routine 07/24/2019 10:30 AM EDT Hyperlipidemia, unspecified Other abnormal glucose CBC W/ AUTO DIFFERENTIAL Routine 07/24/2019 10:30 AM EDT Hyperlipidemia, unspecified Other abnormal glucose CBC W/ AUTO DIFFERENTIAL Routine 07/24/2019 10:30 AM EDT Hyperlipidemia, unspecified Other abnormal glucose HEMOGLOBIN A1C Routine 07/24/2019 10:30 AM EDT Hyperlipidemia, unspecified Other abnormal glucose LIPID PANEL W/ DIRECT LDL Routine 07/24/2019 10:30 AM EDT Hyperlipidemia, unspecified Other abnormal glucose COMPREHENSIVE METABOLIC PANEL Routine 07/24/2019 10:30 AM EDT Hyperlipidemia, unspecified Other abnormal glucose documented in this encounter Results * Manual Differential (07/24/2019 10:30 AM EDT) NEUTROPHILS % 61 42 - 75 % LAB HEMATOLOGY METHOD 07/24/2019 12:00 PM EDT [facility] BANDS % 2 0 - 3 % LAB HEMATOLOGY METHOD 07/24/2019 12:00 PM EDT [facility] LYMPHOCYTES % 29 16 - 52 % LAB HEMATOLOGY METHOD 07/24/2019 12:00 PM EDT [facility] MONOOCYTES % 6 0 - 11 % LAB HEMATOLOGY METHOD 07/24/2019 12:00 PM EDT [facility] EOSINOPHILS % 1 0 - 7 % LAB HEMATOLOGY METHOD 07/24/2019 12:00 PM EDT [facility] BASOPHILS % 1 0 - 4 % LAB HEMATOLOGY METHOD 07/24/2019 12:00 PM EDT [facility] NEUTROPHILS ABS 5.23 2.00 - 8.10 10*3/uL LAB HEMATOLOGY METHOD 07/24/2019 12:00 PM EDT [facility] LYMPHOCYTES ABS 2.41 0.75 - 5.50 10*3/uL LAB HEMATOLOGY METHOD 07/24/2019 12:00 PM EDT [facility] MONOOCYTES ABS 0.5 0.0 - 1.2 10*3/uL LAB HEMATOLOGY METHOD 07/24/2019 12:00 PM EDT [facility] EOSINOPHILS ABS 0.08 0.00 - 0.75 10*3/uL LAB HEMATOLOGY METHOD 07/24/2019 12:00 PM EDT [facility] BASOPHILS ABS 0.08 0.00 - 0.40 10*3/uL LAB HEMATOLOGY METHOD 07/24/2019 12:00 PM EDT [facility] Platelet Estimate Appears: Normal LAB HEMATOLOGY METHOD 07/24/2019 12:00 PM EDT [facility] LARGE FORMS OF PLATELTS Noted LAB HEMATOLOGY METHOD 07/24/2019 12:00 PM EDT [facility] RBC MORPHOLOGY Normal LAB HEMATOLOGY METHOD 07/24/2019 12:00 PM EDT [facility] Blood (Blood, Venous) 07/24/2019 10:30 AM EDT 07/24/2019 11:39 AM EDT Tarun Muniz MD LAB BLOOD ORDERABLES Final Resu lt [facility] [address] [place] [address] * (ABNORMAL) CBC with Auto Differential (07/24/2019 10:30 AM EDT) WBC 8.3 4.8 - 10.8 K/uL LAB HEMATOLOGY METHOD 07/24/2019 12:00 PM EDT [facility] RBC 3.51(L) 4.20 - 5.40 M/uL LAB HEMATOLOGY METHOD 07/24/2019 12:00 PM EDT [facility] HEMOGLOBIN 10.7(L) 12.0 - 16.0 g/dL LAB HEMATOLOGY METHOD 07/24/2019 12:00 PM EDT [facility] HEMATOCRIT 33.9(L) 37.0 - 47.0 % LAB HEMATOLOGY METHOD 07/24/2019 12:00 PM EDT [facility] MCV 96.6 81.0 - 99.0 fL LAB HEMATOLOGY METHOD 07/24/2019 12:00 PM EDT [facility] MCH 30.5 27.0 - 31.0 pg LAB HEMATOLOGY METHOD 07/24/2019 12:00 PM EDT [facility] MCHC 31.6(L) 33.0 - 37.0 % LAB HEMATOLOGY METHOD 07/24/2019 12:00 PM EDT [facility] RDW CV 16.3(H) 11.5 - 14.9 % LAB HEMATOLOGY METHOD 07/24/2019 12:00 PM EDT [facility] PLATELETS 408(H) 130 - 400 K/uL LAB HEMATOLOGY METHOD 07/24/2019 12:00 PM EDT [facility] MPV 10.0 9.5 - 14.4 fL LAB HEMATOLOGY METHOD 07/24/2019 12:00 PM EDT [facility] Blood (Blood, Venous) 07/24/2019 10:30 AM EDT 07/24/2019 11:39 AM EDT Tarun Muniz MD LAB BLOOD ORDERABLES Final Resu lt [facility] [address] [place] [address] * Hemoglobin A1c (07/24/2019 10:30 AM EDT) [facility] HEMOGLOBIN A1C 6.3 4.2 - 6.3 % LAB CHEMISTRY METHOD 07/24/2019 2:40 PM EDT [facility] Estimated Average Glucose (EAG) 134.11 LAB CHEMISTRY METHOD 07/24/2019 2:40 PM EDT [facility] Blood (Blood, Venous) 07/24/2019 10:30 AM EDT 07/24/2019 11:39 AM EDT Narrative [facility] - 07/24/2019 2:40 PM EDT Estimated AVG Glucoes (NOTE) An estimated Average Glucose is a calculation from the standard A1C assay per recommendation by ADA. Tarun Muniz MD LAB BLOOD ORDERABLES Final Resu lt Performing Organization Address [facility]/ZIP Co de Phone Number [facility] [address] [place] [address], [place] [phone] * Lipid panel W/ Direct LDL (07/24/2019 10:30 AM EDT) [facility] Cholesterol, Total 142.0 <=200.0 mg/dl LAB CHEMISTRY METHOD 07/24/2019 2:34 PM EDT [facility] Triglycerides 148 30 - 149 mg/dL LAB CHEMISTRY METHOD 07/24/2019 2:34 PM EDT [facility] HDL 40.00 40.00 - 59.00 mg/dL LAB CHEMISTRY METHOD 07/24/2019 2:34 PM EDT [facility] LDL Direct 82 <=130 mg/dL LAB CHEMISTRY METHOD 07/24/2019 2:34 PM EDT [facility] Blood (Blood, Venous) 07/24/2019 10:30 AM EDT 07/24/2019 11:49 AM EDT Narrative [facility] - 07/24/2019 2:34 PM EDT Cholesterol Reference Ranges: Reference Ranges: (mg/dL) <200 Desirable 200-240 Borderline >240 High Risk LDL Reference Ranges: Reference Ranges: (mg/dL) < 100 Desirable 100-129 Low risk 130-159 Borderline high 160-189 High >= 190 Very high us Tarun Muniz MD LAB BLOOD ORDERABLES Final Resu lt [facility] [address] [place] [address], * (ABNORMAL) Comprehensive metabolic panel (07/24/2019 10:30 AM EDT) SODIUM 141 135 - 148 mmol/L LAB CHEMISTRY METHOD 07/24/2019 2:[address] [facility] POTASSIUM 5.0 3.5 - 5.2 mmol/L LAB CHEMISTRY METHOD 07/24/2019 2:[address] [facility] CO2 27 21 - 32 mmol/L LAB CHEMISTRY METHOD 07/24/2019 2:34 PM [facility] CHLORIDE 110 100 - 110 mmol/L LAB CHEMISTRY METHOD 07/24/2019 2:34 PM [facility] BUN 11.0 3.0 - 23.0 mg/dL LAB CHEMISTRY METHOD 07/24/2019 2:34 PM [facility] CREATININE 1.20(H) 0.60 - 1.00 mg/dL LAB CHEMISTRY METHOD 07/24/2019 2:34 PM [facility] GLUCOSE 86 65 - 99 mg/dL LAB CHEMISTRY METHOD 07/24/2019 2:34 PM [facility] AST 14 0 - 48 U/L LAB CHEMISTRY METHOD 07/24/2019 2:34 PM [facility] ALT 21 13 - 61 U/L LAB CHEMISTRY METHOD 07/24/2019 2:34 PM [facility] PROTEIN TOTAL 6.5 6.0 - 8.3 g/dL LAB CHEMISTRY METHOD 07/24/2019 2:34 PM [facility] ALBUMIN 3.3(L) 3.4 - 5 g/dL LAB CHEMISTRY METHOD 07/24/2019 2:34 PM [facility] BILIRUBIN TOTAL 0.50 0.20 - 1.00 mg/dL LAB CHEMISTRY METHOD 07/24/2019 2:34 PM [facility] CALCIUM 8.9 8.4 - 10.6 mg/dL LAB CHEMISTRY METHOD 07/24/2019 2:34 PM [facility] ALK PHOS 88 45 - 136 U/L LAB CHEMISTRY METHOD 07/24/2019 2:34 PM [facility] A/G RATIO 1.03 0.90 - 2.00 Ratio LAB CHEMISTRY METHOD 07/24/2019 2:34 PM [facility] ANION GAP 4.0(L) 4.3 - 12.3 mmol/L LAB CHEMISTRY METHOD 07/24/2019 2:34 PM EDT [facility] EGFR 49.9(L) >60.0 mL/min/1. 73m*2 LAB CHEMISTRY METHOD 07/24/2019 2:34 PM EDT [facility] BUN / CREAT RATIO 9.17(L) 10.00 - 24.00 Ratio LAB CHEMISTRY METHOD 07/24/2019 2:34 PM EDT [facility] Blood (Blood, Venous) 07/24/2019 10:30 AM EDT 07/24/2019 11:49 AM EDT Tarun Muniz MD LAB BLOOD ORDERABLES Final Resu lt [facility] [address] [place] [address], documented in this encounter Visit Diagnoses Diagnosis Hyperlipidemia, unspecified Other abnormal glucose documented in this encounter Care Teams Naphtha Washing System Operator Relationship Specialty Start Date End Date Tarun Muniz MD [address] [facility] [address] [place] [address] PCP - General Family Medicine 03/08/18 Vijay Mullen MD [address] [facility], [place], [facility] [place] [address] Nephrology 07/18/19 [place] [address] [place] [address] Infectious Diseases 11/14/19 Anthony Ellis III, MD [address] [place] [address] Orthopaedic Surgery 11/14/19 Kelsy Ferrell MD [address] [place] [address] [address] [place] [address] Endocrinology 11/17/19 01/24/22 Devang Yap MD [address] [facility] [address] [place] [address] Neurology 04/01/21 Joaquín Mcmullen MD [address] [place] [address] [address] [place] [address] Pain Medicine 08/16/23 Rosa Motta Endocrinology 09/15/22 documented as of this encounter
--- OUTSIDE RECORDS SUMMARY | 2025-01-12 13:15 | XMS_ITS | Patient Health Record ---
Author Organization [facility] Address [address] [place], [place] [id number] Care Team Providers Care Freight Elevator Operator Name Role Phone MD Tarun [facility] Primary Care Provider ASHLEY Dominguez Unavailable [phone] CHRISSY BOSCH Unavailable [phone] Allergies No Known Allergies Results Component Value Reference Range Notes XRAY Knee BILAT 3 Views Reviewed date:11/25/2024 03:28:40 PM Interpretation: Performing Lab: Notes/Report: Reason For Referral No Information Medications Medication SIG (Take, Route, Frequency, Duration) Notes Start Date End Date Status Synthroid 100 MCG 1 tablet in the morning on an empty stomach Orally Once a day Active Protonix 40 MG 1 tablet Orally Once a day Active Curcumin 95 Active Flonase Active Meclizine HCl 25 MG Oral; Duration: 30 Days Active Levothyroxine Sodium 100 MCG Oral; Duration: 30 Active DULoxetine HCl 60 MG Oral; Duration: 30 Active ZyrTEC Active Tylenol Active Lipitor Active Hydroxychloroquine Sulfate 2 00 MG Oral; Duration: 30 Days Active Social History Tobacco Use: Social History Observation Description Date Details (start date - stop date) Never Smoker NA - NA Smoking Question Answer Notes Are you a: never smoker Tobacco Use other than smoking? No Additional Findings: Tobacco Non-User Never chew ed tobacco Problems Problem Type SNOMED Code ICD Code Onset Dates Problem Status W/U Status Risk Notes Problem Chronic pain (68052285) Other chronic pain (G89.29) Active confirmed Problem Osteoarthritis of knee (628463529) Unilateral primary osteoarthritis, left knee (M17.12) Active confirmed Problem Fibromyalgia (136761349) Fibromyalgia (M79.7) Active confirmed Problem Artificial knee joint present (275580921723) Status post total bilateral knee replacement (Z96.653) Active confirmed Problem Sciatica (68775789) Right sided sciatica (M54.31) Active confirmed Problem History of arthroplasty of right knee (4455866306695842) History of arthroplasty of right knee (Z96.651) Active confirmed Vital Signs Height 5'5'' ft' in 11/25/2024 Weight 250 lbs 11/25/2024 BMI 41.6 kg/m2 11/25/2024 Encounters Encounter Location Date Provider Diagnosis [facility] [address] [place] [id number] 11/25/2024 ASHLEY MARQUEZ Fibromyalgia M79.7 and Status post total bilateral knee replacement Z96.653 Assessments Encounter Date Diagnosis (ICD Code) Assessment Notes Treatment Notes Treatment Clinical Notes Section Notes 11/25/2024 Fibromyalgia (ICD-10 - M79.7) Bilateral total knee arthroplasty Fibromyalgia New x-rays of both knees show total knee arthroplasties in good position without any obvious complicating features, large soft tissue envelope Her knees seem like they are continuing to do well. She attributes her pain to fibromyalgia. She will continue with stretching lab and massage and chiropractor as needed. She would like to return on a yearly basis. 11/25/2024 Status post total bilateral knee replacement (ICD-10 - Z96.653) Bilateral total knee arthroplasty Fibromyalgia New x-rays of both knees show total knee arthroplasties in good position without any obvious complicating features, large soft tissue envelope Her knees seem like they are continuing to do well. She attributes her pain to fibromyalgia. She will continue with stretching lab and massage and chiropractor as needed. She would like to return on a yearly basis. Plan Of Treatment Next Appt Details Provider Name:ASHLEY MARQUEZ, 11/24/2025 01:30:00 PM, [address], [place], [phone], Insurance Providers Payer Name Payer Address Payer Phone Subscriber Number Group Number Insured Name Patient Relationship to Insured Coverage Start Date Coverage End Date [facility] - Dual Complete (Medicare) [address] [address] [place] [address] [id number] RAISSA MEHTA Self - patient is the insured Medical (General) History Medical History History ICD Code Acid reflux Fibromyalgia Hypothyroidism Sleep apnea Surgical History Surgery Date(Month/Year) Caesarean section 1995 Caesarean section 1998 Sinus surgery procedure 1984 Sinus surgery procedure 1993 Treatment of bladder lesion 1978 Left Total Knee Arthroplasty (Dr. Baeza t) 01/29/2020 Right Total Knee Arthroplasty (Dr. Charles tt) 08/29/2018 Left thumb trigger finger release (Dr. Surjit roy) 01/10/2021
--- OUTSIDE RECORDS SUMMARY | 2025-01-12 13:15 | XMS_ITS | Encounter Summary ---
Author Organization [facility] Address [address] [place] [address] Care Team Providers Care Primary Class Teacher Name Role Phone Tarun Muniz MD Primary Care Provider Vijay Mullen MD Unavailable [phone] Thien Jackson MD Unavailable Caleb MARR MD, James William Unavailable + Kelsy Ferrell MD Unavailable [phone] Devang Yap MD Unavailable Joaquín Mcmullen MD Unavailable Encounter Details Date Type Department Care Team (Late st Contact Info) Description 08/05/2019 Lab Requisition [facility] - [address] [place] [id number] Tarun Muniz MD [address] [id number] Anemia, unspecified Social History Tobacco Use Types Packs/Day Years [...] Procedure Name Priority Date/Time Associated Diagnosis Comments CBC W/ AUTO DIFFERENTIAL Routine 08/05/2019 11:40 AM EDT Anemia, unspecified CBC W/ AUTO DIFFERENTIAL Routine 08/05/2019 11:40 AM EDT Anemia, unspecified IRON AND TIBC Routine 08/05/2019 11:40 AM EDT Anemia, unspecified FERRITIN Routine 08/05/2019 11:40 AM EDT Anemia, unspecified VITAMIN B12 Routine 08/05/2019 11:40 AM EDT Anemia, unspecified BASIC METABOLIC PANEL Routine 08/05/2019 11:40 AM EDT Anemia, unspecified documented in this encounter Results * (ABNORMAL) CBC with Auto Differential (08/05/2019 11:40 AM EDT) WBC 7.7 4.8 - 10.8 K/uL LAB HEMATOLOGY METHOD 08/05/2019 1:[address] [facility] RBC 3.68(L) 4.20 - 5.40 M/uL LAB HEMATOLOGY METHOD 08/05/2019 1:[address] [facility] HEMOGLOBIN 11.2(L) 12.0 - 16.0 g/dL LAB HEMATOLOGY METHOD 08/05/2019 1:[address] [facility] HEMATOCRIT 35.4(L) 37.0 - 47.0 % LAB HEMATOLOGY METHOD 08/05/2019 1:[address] [facility] MCV 96.2 81.0 - 99.0 fL LAB HEMATOLOGY METHOD 08/05/2019 1:[address] [facility] MCH 30.4 27.0 - 31.0 pg LAB HEMATOLOGY METHOD 08/05/2019 1:[address] [facility] MCHC 31.6(L) 33.0 - 37.0 % LAB HEMATOLOGY METHOD 08/05/2019 1:[address] [facility] RDW CV 16.1(H) 11.5 - 14.9 % LAB HEMATOLOGY METHOD 08/05/2019 1:[address] [facility] PLATELETS 280 130 - 400 K/uL LAB HEMATOLOGY METHOD 08/05/2019 1:[address] [facility] MPV 11.1 9.5 - 14.4 fL LAB HEMATOLOGY METHOD 08/05/2019 1:[address] [facility] NEUTROPHILS ABS 4.65 2.00 - 8.10 10*3/uL LAB HEMATOLOGY METHOD 08/05/2019 1:[address] [facility] LYMPHOCYTES ABS 2.04 0.75 - 5.50 10*3/uL LAB HEMATOLOGY METHOD 08/05/2019 1:[address] [facility] MONOOCYTES ABS 0.63 0.00 - 1.20 10*3/uL LAB HEMATOLOGY METHOD 08/05/2019 1:[address] [facility] EOSINOPHILS ABS 0.37 0.00 - 0.75 10*3/uL LAB HEMATOLOGY METHOD 08/05/2019 1:[address] [facility] BASOPHILS ABS 0.01 0.00 - 0.40 K/uL LAB HEMATOLOGY METHOD 08/05/2019 1:[address] [facility] NEUTROPHILS % 60 42 - 75 % LAB HEMATOLOGY METHOD 08/05/2019 1:[address] [facility] LYMPHOCYTES % 26.50 16.00 - 52.00 % LAB HEMATOLOGY METHOD 08/05/2019 1:[address] [facility] MONOOCYTES % 8 0 - 11 % LAB HEMATOLOGY METHOD 08/05/2019 1:[address] [facility] EOSINOPHILS % 5 0 - 7 % LAB HEMATOLOGY METHOD 08/05/2019 1:[address] [facility] BASOPHILS % 0 0 - 4 % LAB HEMATOLOGY METHOD 08/05/2019 1:47 PM EDT [facility] Blood (Blood, Venous) 08/05/2019 11:40 AM EDT 08/05/2019 1:33 PM EDT us Tarun Muniz MD LAB BLOOD ORDERABLES Final Resu lt [facility] [address] [place] [address] * Vitamin B12 (08/05/2019 11:40 AM EDT) Pathologist [facility] Vitamin B-12 437 193 - 986 pg/mL LAB CHEMISTRY METHOD 08/05/2019 6:36 PM EDT [facility] Blood (Blood, Venous) 08/05/2019 11:40 AM EDT 08/05/2019 1:33 PM EDT us Tarun Muniz MD LAB BLOOD ORDERABLES Final Resu lt Performing Organization Address [facility] Co de Phone Number [facility] [address] [place] [address], [place] [phone] * Iron and TIBC (08/05/2019 11:40 AM EDT) Pathologist [facility] Iron 76.0 35.0 - 150.0 ug/dL LAB CHEMISTRY METHOD 08/05/2019 6:36 PM EDT [facility] TIBC 308.0 250.0 - 425.0 ug/dL LAB CHEMISTRY METHOD 08/05/2019 6:36 PM EDT [facility] Iron Saturation 25 24 - 38 % LAB CHEMISTRY METHOD 08/05/2019 6:36 PM EDT [facility] Blood (Blood, Venous) 08/05/2019 11:40 AM EDT 08/05/2019 1:33 PM EDT us Tarun Muniz MD LAB BLOOD ORDERABLES Final Resu lt Performing Organization Address [facility]/ZIP Co de Phone Number [facility] [address] [place] [address], [place] [phone] * Ferritin (08/05/2019 11:40 AM EDT) Ferritin 91.0 3.0 - 105.0 ng/mL LAB CHEMISTRY METHOD 08/05/2019 6:36 PM [facility] Blood (Blood, Venous) 08/05/2019 11:40 AM EDT 08/05/2019 1:33 PM EDT Tarun Muniz MD LAB BLOOD ORDERABLES Final Resu lt [facility] [address] [place] [address], * (ABNORMAL) Basic metabolic panel (08/05/2019 11:40 AM EDT) Pathologist [facility] SODIUM 144 135 - 148 mmol/L LAB CHEMISTRY METHOD 08/05/2019 6:36 PM [facility] POTASSIUM 4.8 3.5 - 5.2 mmol/L LAB CHEMISTRY METHOD 08/05/2019 6:36 PM [facility] CHLORIDE 113(H) 100 - 110 mmol/L LAB CHEMISTRY METHOD 08/05/2019 6:36 PM [facility] CO2 24 21 - 32 mmol/L LAB CHEMISTRY METHOD 08/05/2019 6:36 PM [facility] BUN 10.0 3.0 - 23.0 mg/dL LAB CHEMISTRY METHOD 08/05/2019 6:36 PM [facility] CREATININE 1.07(H) 0.60 - 1.00 mg/dL LAB CHEMISTRY METHOD 08/05/2019 6:36 PM [facility] GLUCOSE 88 65 - 99 mg/dL LAB CHEMISTRY METHOD 08/05/2019 6:36 PM [facility] CALCIUM 9.3 8.4 - 10.6 mg/dL LAB CHEMISTRY METHOD 08/05/2019 6:36 PM [facility] EGFR 57.4(L) >60.0 mL/min/1. 73m*2 LAB CHEMISTRY METHOD 08/05/2019 6:36 PM [facility] BUN / CREAT RATIO 9.35(L) 10.00 - 24.00 Ratio LAB CHEMISTRY METHOD 08/05/2019 6:36 PM [facility] ANION GAP 7.0 4.3 - 12.3 mmol/L LAB CHEMISTRY METHOD 08/05/2019 6:36 PM EDT [facility] Blood (Blood, Venous) 08/05/2019 11:40 AM EDT 08/05/2019 1:33 PM EDT Tarun Muniz MD LAB BLOOD ORDERABLES Final Resu lt [facility] [address] [place] [address], documented in this encounter Visit Diagnoses Diagnosis Anemia, unspecified documented in this encounter Care Teams Primary Class Teacher Relationship Specialty Start Date End Date Tarun Muniz MD [address] [facility] [address] [place] [address] PCP - General Family Medicine 03/08/18 Vijay Mullen MD [address] , [place], [facility] [place] [address] Nephrology 07/18/19 [place] [address] [facility] [address] [place] [address] Infectious Diseases 11/14/19 Anthony Ellis III, MD [address] [place] [address] Orthopaedic Surgery 11/14/19 Kelsy Ferrell MD [address] [facility] [address] [place] [address] Endocrinology 11/17/19 01/24/22 Devang Yap MD [address] [facility] [address] [place] [address] Neurology 04/01/21 Joaquín Mcmullen MD [address] [facility] [address] [place] [address] Pain Medicine 08/16/23 Rosa Motta Endocrinology 09/15/22 documented as of this encounter
--- OUTSIDE RECORDS SUMMARY | 2025-01-12 13:15 | XMS_ITS | Encounter Summary ---
Author Organization [facility] Address [address] [place] [address] Care Team Providers Care Wooden Box Maker Name Role Phone Tarun Muniz MD Primary Care Provider Vijay Mullen MD Unavailable Thien Jackson MD Unavailable Caleb MARR MD, James William Unavailable + Devang Yap MD Unavailable [phone] Joaquín Mcmullen MD Unavailable [phone] Encounter Details Date Type Department Care Team (Late st Contact Info) Description 01/02/2025 Results Follow-Up [facility] [address] [facility] [address] [place] [address] Tarun Muniz MD [address] [facility] [address] [place], [place] [id number] Social History Tobacco Use Types Packs/Day Years Used Date Smoking Tobacco: Never Smokeless Tobacco: Never Alcohol Use Standard Drinks/Week Comments Never 0 [...] on file documented as of this encounter Visit Diagnoses Not on filedocumented in this encounter Care Teams Wooden Box Maker Relationship Specialty Start Date End Date Tarun Muniz MD [address] [facility] [address] [place] [address] PCP - General Family Medicine 03/08/18 Vijay Mullen MD [address] , [place], [facility] [place] [address] Nephrology 07/18/19 [place] [address] [facility] [address] [place] [address] Infectious Diseases 11/14/19 Anthony Ellis III, MD [address] [place] [address] Orthopaedic Surgery 11/14/19 Devang Yap MD [address] [facility] [address] [place] [address] Neurology 04/01/21 Joaquín Mcmullen MD [address] [facility] [address] [place] [address] Pain Medicine 08/16/23 Rosa Motta Endocrinology 09/15/22 documented as of this encounter
--- OUTSIDE RECORDS SUMMARY | 2025-01-12 13:15 | XMS_ITS | Clinical Summary ---
Author Organization [facility] Address [address] [place] [address] Care Team Providers Care Wood Tile Installation Helper Name Role Phone Tarun Muniz MD Primary Care Provider [phone] Allergies Active Allergy Reactions Criticality Noted Date Comments Adhesive 07/16/2019 Tape Latex 07/22/2019 Psyllium Hives 02/03/2021 Nsaids (Non-Steroidal Anti-Inflammatory Drug) Other (See Comments) 06/11/2020 For Kidney resaons Medications pantoprazole (PROTONIX) 40 MG tablet Take by mouth. Active cholecalciferol (VITAMIN D3) 125 mcg (5,000 unit) capsule Take by mouth. Activ e ascorbic acid, vitamin C, (VITAMIN C) 500 mg tablet Take by mouth. Activ e docosahexaenoic acid-epa 120-180 mg Cap Take by mouth. Activ e docusate sodium (COLACE) 100 MG capsule Take by mouth. Activ e niacin 500 MG CR capsule Take by mouth. Activ e zinc 50 mg Tab Take by mouth. Active DULoxetine (CYMBALTA) 60 MG capsule Take 1 capsule by mouth in the morning. Active famotidine (PEPCID) 40 MG tablet Take 1 tablet by mouth in the morning. Active meclizine (ANTIVERT) 25 mg tablet Take 1 tablet by mouth in the morning and 1 tablet before bedtime. Active naltrexone (DEPADE) 50 mg tablet Take by mouth. Activ e azithromycin (ZITHROMAX) 250 mg tablet Take 1 tablet by mouth in the morning. Active predniSONE (DELTASONE) 5 MG tablet Take 1 tablet by mouth in the morning. Active atorvaSTATin (LIPITOR) 20 mg tablet Take 1 tablet by mouth in the morning. Active amitriptyline (ELAVIL) 25 mg tablet Take 1 tablet by mouth nightly. Active traMADoL (ULTRAM) 50 mg tablet Take 1 tablet by mouth every 6 (six) hours as needed for Pain. Active hydroxychloroquine (PLAQUENIL) 200 mg tablet Take 1 tablet by mouth in the morning. Active pregabalin (LYRICA) 50 MG capsule Take 1 capsule by mouth 3 (three) times daily. Active clotrimazole (MYCELEX) 10 mg robert Take 1 tablet by mouth 5 (five) times daily. 5 Active hydrOXYzine HCL (ATARAX) 25 MG tablet Take by mouth. 5 Active ketoconazole (NIZORAL) 2 % cream 5 Active amitriptyline (ELAVIL) 50 mg tablet 5 Active traMADoL (ULTRAM-ER) 200 MG 24 hr tablet Take 1 tablet by mouth daily as needed. 5 Active acetaminophen (TYLENOL) 500 mg tablet Take 1 tablet by mouth in the morning and 1 tablet before bedtime. Active fexofenadine (LOGAN) 60 MG tablet Take 1 tablet by mouth in the morning and 1 tablet before bedtime. Active levothyroxine 100 MCG Oral tabletIndications: Primary hypothyroidism Take 1 tablet by mouth in the morning. 90 tablet 3 5 Active ACCU-CHEK GUIDE GLUCOSE METER MiscIndications:Ty pe 2 diabetes mellitus with hyperglycemia, without long-term current use of insulin (HC) Use daily as needed. E11.6 1 each 5 Active ACCU-CHEK GUIDE TEST STRIPS StrpIndications:Ty pe 2 diabetes mellitus with hyperglycemia, without long-term current use of insulin (HC) Use as instructed 3 times daily. E11.6 270 strip 3 5 Active ACCU-CHEK SOFTCLIX LANCETS lancetsIndications :Type 2 diabetes mellitus with hyperglycemia, without long-term current use of insulin (HC) Use as instructed 3 times daily. E11.6 270 each 3 5 Active ACCU-CHEK SOFT DEV LANCETS KitIndications:Typ e 2 diabetes mellitus with hyperglycemia, without long-term current use of insulin (HC) Use as instructed 3 times daily. E11.6 1 each 5 Active Active Problems No known active problems Immunizations Immunization Administration Dates Next Due Hepatitis A / Hepatitis B (NYO=752) 10/05/2010,0 05/19/2010,04/14/2010 Influenza Inj (PF) Quad 0.5m l (SNH=984) 02/08/2019,02/22/2018,02/07/2017,2013 Influenza Inj FLUBLOK (PF) Q UAD 0.5ml (VAG=359) 02/08/2019 Influenza Inj w/Preservative TRIVALENT (RBW=881) 02/04/2010 Influenza Unspecified (CVX=88) 02/07/2017 MMR (CVX=03) 02/14/1994,12/30/1993 Shingrix (recombinant) (OGE=931) 12/07/2020 Tdap (ATJ=078) 04/14/2010 Family History Medical History Relation Name Comments COPD Father + smoker Heart disease Father leaky valve Hypertension Father Arthritis Mother Heart disease Mother CHF Hypertension Mother Relation Name Status Comments Father Mother Alive Social History Tobacco Use Types Packs/Day Years Used Date Smoking Tobacco: Never Smokeless Tobacco: Never Comments No Sex and Gender Information Value Date Recorded Sex Assigned at Female 01/30/2021 9:16 AM EDT Legal Sex Female 11:38 AM EST Gender Identity Female 01/30/2021 9:16 AM EDT Sexual Orientation Straight 01/30/2021 9: 16 AM EDT Last Filed Vital Signs Vital Sign Reading Time Taken Comments Blood Pressure 130/80 08/04/2021 9:31 AM EDT Pulse 67 02/03/2021 7:59 AM EDT Temperature 36.2 C (97.2 F) 02/03/2021 7:59 AM EDT Respiratory Rate 14 02/03/2021 7:59 AM EDT Oxygen Saturation - - Inhaled Oxygen Concentration - - Weight 152.9 kg (337 lb) 08/14/2024 8:57 AM EDT Height 167.6 cm (5' 6 ) 08/14/2024 8:57 AM EDT Body Mass Index 54.39 08/14/2024 8:57 AM EDT Plan of Treatment Health Maintenance Due Date Last Done Comments CT Colonography 1960 Cologuard (FIT-DNA every 3 years) 1960 Colonoscopy 1960 Colorectal Cancer Screening 1960 DIABETES Hemoglobin A1c 1960 DIABETES Nephropathy Screening Microalbumin 1960 FOBT/iFOBT (every 1 year) 1960 Hepatitis C Screening 1960 Sigmoidoscopy 1960 Pneumococcal Vaccine 50+ years (1 of 2 - PCV) 08/21/1979 Pap + HPV Screening 1981 DIABETES Foot Exam 06/11/2020 DIABETES Retinal Dilated Eye Exam 06/11/2020 Mammogram Screening 06/11/2020 COVID-19 Vaccine (3 - Moderna risk series) 04/20/2021 03/23/2021, 01/06/2021 Medicare Initial AWV [id number] 09/22/2023 Influenza Vaccine (#1) 2024 , 01/31/2024, 02/01/2023, Additional history exists TdaP/Td Vaccine (3 - Td or Tdap) 02/14/2033 02/14/2023, 04/14/2010 Hepatitis A Vaccine Aged Out 10/05/2010, 05/19/2010, 04/14/2010 No longer eligible based on patient's age to complete this topic Shingles Vaccine Completed 03/23/2021, 12/07/2020 Meningococcal ACWY Vaccine Aged Out N o longer eligible based on patient's age to complete this topic Insurance [facility] MEDICARE Care Teams Wood Tile Installation Helper Relationship Specialty Start Date End Date Tarun Muniz MD [address] [place], [place] [id number] PCP - General Family Medicine 07/22/20
[2025-01-12 13:43] VITALS: RESP 17; O2SAT 92
[2025-01-12] MEDS: morphine 4 mg/mL SDV 1 mL IVP (13:43)
[2025-01-12] MEDS: ondansetron 2 mg/ML SDV 2 mL 4 MG IVP (13:44)
== END 2025-01-12 14:34 | disposition home or self-care (01) ==
PROVIDERS: Emergency Provider Family Medicine
DX: S42.211A Unspecified displaced fracture of surgical neck of right humerus, initial encounter for closed fracture (principal); W01.0XXA Fall on same level from slipping, tripping and stumbling without subsequent striking against object, initial encounter; Y92.481 Parking lot as the place of occurrence of the external cause
CPT/HCPCS: 73030; 73060; 96374; 96375; 99284; A4565; J2270; J2405